=== PATIENT | male | born 1980 | race African-American/Black ===

== ENCOUNTER 2016-03-26 11:42 | Emergency (ER) | payer BC, OTHER ==
[~2016-03-26 11:42] MED LIST: FLECTOR1.3 TOP
[2016-03-26] MEDS ORDERED: GASTROGRAFIN SOLUTION 30ML (Q9963) As Ordered ONE (13:31)
[2016-03-26] MEDS ORDERED: PROMETHAZINE INJ 25 MG/ML VIAL (J2550) As Ordered ONE (13:33)
[2016-03-26 13:46] LABS: BASO % 0.7 % (0.0-1.0); EOS # 0.2 K/mm3 (0.0-0.50); EOS % 2.4 % (0.0-3.0); LARGE UNSTAINED CELL # 0.1 K/mm3 (0.0-0.4); LARGE UNSTAINED CELL % 1.6 % (0.0-4.0); LYMPH # 2.5 K/mm3 (1.5-4.5); MEAN CORPUSCULAR HEMOGLOBIN 28.3 pg (27.0-33.0); MEAN CORPUSCULAR HGB CONC 33.4 g/dl (32.0-36.5); MEAN CORPUSCULAR VOLUME 84.8 fl (80.0-96.0); MONO # 0.4 K/mm3 (0.0-0.8); MONO % 4.3 % (0.0-5.0); NEUTROPHILS # 5.1 K/mm3 (1.8-7.7); PLATELET COUNT, AUTOMATED 141 k/mm3 (150-450); RED CELL DISTRIBUTION WIDTH 14.1 % (11.5-14.5); WHITE BLOOD COUNT 8.2 K/mm3 (4.0-10.0)
[2016-03-26 14:15] LABS: ALBUMIN 4.5 GM/DL (3.2-5.2); ALBUMIN/GLOBULIN RATIO 1.13 (1.00-1.93); ALKALINE PHOSPHATASE 56 U/L (45-117); ALT/SGPT 31 U/L (12-78); AMYLASE 55 U/L (25-115); ANION GAP 10 MEQ/L (8-16); AST/SGOT 30 U/L (15-37); BILIRUBIN,DIRECT 0.1 MG/DL (0.0-0.2); BILIRUBIN,TOTAL 0.7 MG/DL (0.2-1.0); BLOOD UREA NITROGEN 12 MG/DL (7-18); CALCIUM LEVEL 9.1 MG/DL (8.5-10.1); CARBON DIOXIDE LEVEL 23 MEQ/L (21-32); CHLORIDE LEVEL 109 MEQ/L (98-107); CREATININE FOR GFR 1.04 MG/DL (0.70-1.30); GLOMERULAR FILTRATION RATE > 60.0 (>60); GLUCOSE, FASTING 82 MG/DL (70-105); MAGNESIUM LEVEL 2.1 MG/DL (1.8-2.4); POTASSIUM SERUM 3.9 MEQ/L (3.5-5.1); SODIUM LEVEL 142 MEQ/L (136-145); TOTAL PROTEIN 8.5 GM/DL (6.4-8.2)
--- NOTE | 2016-03-26 14:34 | REP ---
PA and lateral chest 03/26/2016 Indication: Chills Comparison: PA and lateral chest radiographs 06/08/2015, and 09/24/2013 Findings: Cardiomediastinal silhouette is normal. Lungs are clear bilaterally. Bones and soft tissues are within normal limits. Impression 1. No acute cardiopulmonary process or interval change Signed by Marycruz Jarvis MD 03/26/2016 02:26 P
[2016-03-26] MEDS ORDERED: ISOVUE-370 76% 100ML VIAL (Q9967) As Ordered ONE (14:44)
[2016-03-26 16:03] LABS: CONTROL LINE MONO INT CTR LINE PRESENT
[2016-03-26] MEDS ORDERED: ACETAMINOPHEN 325 MG TAB As Ordered ONE (16:54)
--- NOTE | 2016-03-26 17:10 | EDDOCDS ---
Physician Documentation [facility] Name: Gonzalo Stevens Age: 35 yrs Sex: Male : 1980 Arrival Date: 03/26/2016 Time: 11:42 Bed I4 / M4 Private MD: No Pcp Disposition: 03/26/16 17:01 Discharged to Home/Self Care. Impression: Nausea, Dehydration - WITH SLIGHTLY ELEVATED CPK, Anxiety disorder, unspecified. - Condition is Stable. - Discharge Instructions: Dehydration, Adult, Nausea, Adult, Generalized Anxiety Disorder. - Prescriptions for promethazine 25 mg Oral Tablet - take 1 tablet by ORAL route every 6 hours As needed; 20 tablet. Xanax 0.25 mg Oral Tablet - take 1 tablet by ORAL route every 8 hours As needed MDD: 3 tabs; 10 tablet. - Medication Reconciliation, Local Pharmacy Hours form. - Follow up: Emergency Department; When: 2 - 3 days; Reason: Wound/Symptom Recheck, Recheck today's complaints, Continuance of care. - Problem is new. - Symptoms have improved. Historical: - Allergies: no known allergies; - Home Meds: 1. Zofran (as hydrochloride) 4 mg Oral tab every 8 hours as needed 2. Penicillin VK Unknown Oral three times a day - PMHx: none; - PSHx: none; - Social history: Smoking status: Patient states was never smoker of tobacco. No barriers to communication noted, The patient speaks fluent Pashto, Speaks appropriately for age. - Family history: Not pertinent. - : The pt / caregiver states he / she is not on anticoagulants. Home medication list is obtained from the patient. - Exposure Risk Screening:: None identified. Vital Signs: 03/26 11:44 BP 121 / 75; Pulse 58; Resp 18; Temp 97.8(O); Pulse Ox 100% ; Weight 68.04 kg / 150 cmb lbs; Height 5 ft. 10 in. (177.80 cm); Pain 9/10; 16:20 BP 140 / 76; Pulse 46; Resp 20; Temp 100.2(T); Pulse Ox 98% on R/A; Pain 6/10; dsf 11:44 Body Mass Index 21.52 (68.04 kg, 177.80 cm) cmb MDM: 13:20 IV Saline Lock ordered. dt4 13:20 Strep Screen, Nursing ordered. dt4 13:20 NS 0.9% 1000 ml IV at bolus once ordered. dt4 13:20 NS 0.9% 1000 ml IV at bolus once ordered. dt4 13:20 Promethazine 25 mg IVP once; dilute and administer 30-60 minutes ordered. dt4 13:20 -Blood Culture (Adults Only), peripheral from different site, or from device/port/PICC dt4 etc. if present ordered. 13:20 Accucheck ordered. dt4 13:20 Undress patient appropriately for examination ordered. dt4 13:22 Magnesium Level Ordered. EDMS 13:22 Creatine Phosphokinase Ordered. EDMS 13:22 Urinalysis Ordered. EDMS 13:22 Monoscreen Ordered. EDMS 13:22 Lactic Acid (Aleman tube on ice) Ordered. EDMS 13:22 Amylase Ordered. EDMS 13:22 Basic Metabolic Profile Ordered. EDMS 13:22 CBC with Diff Ordered. EDMS 13:22 Lipase Ordered. EDMS 13:22 Liver Profile Ordered. EDMS 13:22 Urine Culture Ordered. EDMS 13:22 -Blood Culture Ordered. EDMS 13:22 Chest, 2 View (pa\E\lat) Ordered. EDMS 13:22 -Blood Culture (Adults Only), peripheral from different site, or from device/port/PICC jrd etc. if present complete. 13:22 CT ABD & PELVIS: IV and Oral Contrast Ordered. EDMS 13:22 NOTHING BY MOUTH+DIET ordered. EDMS 13:26 BLOOD CULTURES Ordered. EDMS 13:42 Diatrizoate Meglumine & Sodium Liquid 10 ml PO once; mix in 290cc of water ordered. dsf 13:42 Diatrizoate Meglumine & Sodium Liquid 10 ml PO once; mix in 290cc of water ordered. dsf 13:45 GATS (NEGATIVE STREP SCREEN) Ordered. EDMS 13:46 Fingerstick Blood Sugar Ordered. EDMS 13:47 [facility] Payment Agreement was scanned into [employer] and attached to record. pm4 13:48 Financial registration complete. pm4 15:53 Creatine Phosphokinase Reviewed. dt4 15:53 Urinalysis Reviewed. dt4 15:53 Basic Metabolic Profile Reviewed. dt4 15:53 CBC with Diff Reviewed. dt4 15:53 Liver Profile Reviewed. dt4 15:53 Magnesium Level Reviewed. dt4 15:53 Lactic Acid (Aleman tube on ice) Reviewed. dt4 15:53 Amylase Reviewed. dt4 15:53 Lipase Reviewed. dt4 15:53 Fingerstick Blood Sugar Reviewed. dt4 15:53 Chest, 2 View (pa\E\lat) Reviewed. dt4 16:25 Consult PFS/PSA/Tibco Developer ordered. dt4 16:43 Consult PFS/PSA/Tibco Developer complete. ml4 16:48 Acetaminophen Tablet 975 mg PO once ordered. dt4 Point of Care Testing: Blood Glucose: 13:39 Blood Glucose: 88 mg/dL; kc3 Ranges: Administered Medications: 13:40 Drug: Diatrizoate Meglumine & Sodium 10 ml [diatrizoate meglumine and diat.sodium 66 dsf %-10 % oral solution (10 mL)] Route: PO; 13:41 Drug: NS 0.9% 1000 ml [sodium chloride 0.9 % injection solution] Route: IV; Rate: dsf bolus; Site: left antecubital; 17:10 Follow up: IV Status: Completed infusion; IV Intake: 1000ml dsf 13:41 Drug: Promethazine 25 mg [promethazine 25 mg/mL injection solution (1 mL)] Route: IVP; dsf Site: left antecubital; 14:27 Drug: Diatrizoate Meglumine & Sodium 10 ml [diatrizoate meglumine and diat.sodium 66 kc3 %-10 % oral solution (10 mL)] Route: PO; 15:32 Drug: NS 0.9% 1000 ml [sodium chloride 0.9 % injection solution] Route: IV; Rate: dsf bolus; Site: left antecubital; 16:56 Drug: Acetaminophen 975 mg [acetaminophen 325 mg tablet (3 tabs)] Route: PO; kc3 Signatures: Dispatcher MedHost EDUT Javon Fitzgerald RN RN mlb1 Zahra Marr, PSA PSA ml4 Ami MonahanRN RN dsf Aneta Lee PA-C PAArabella dt4 Abdulaziz Villaseñor, ROCK LATHER ROCK LATHER jrd Denise Moore RN RN kc3 Pelon Myers, Reg Reg pm4 The chart was reviewed and I authenticate all verbal orders and agree with the evaluation and treatment provided.Attachments: 13:47 [facility] Payment Agreement pm4 MTDD
--- NOTE | 2016-03-26 17:11 | EDDOCDS ---
Nurse's Notes [facility] Name: Gonzalo Stevens Age: 35 yrs Sex: Male : 1980 Arrival Date: 03/26/2016 Time: 11:42 Bed I4 / M4 Private MD: No Pcp Diagnosis: Nausea;Dehydration-WITH SLIGHTLY ELEVATED CPK;Anxiety disorder, unspecified Presentation: 03/26 11:46 Presenting complaint: Patient states: Not feeling well since last Thursday, body aches mlb1 fatigue, and nausea. Adult Sepsis Screening: The patient does not have new or worsening altered mentation. Patient's respiratory rate is less than 22. Systolic blood pressure is greater than 100. Patient has a qSOFA score of 0- Negative Sepsis Screen. Suicide/Homicide risk assessment- the patient denies having any suicidal and/or homicidal ideations and does not present with any other emotional, behavioral or mental health complaints. Status: Patient is not a public services librarian or dependent. Transition of care: patient was not received from another setting of care. 11:46 Acuity: IRA Level 4 mlb1 11:46 Method Of Arrival: Walkin/Carried/Asstd mlb1 Triage Assessment: 11:49 General: Appears in no apparent distress, Behavior is cooperative. General: Reports mlb1 feeling ill for > 3 days. Pain: Location: "all over" Pain currently is 10 out of 10 on a pain scale. HIV screening NA for this visit Offered previously. GI: Reports nausea. Historical: - Allergies: no known allergies; - Home Meds: 1. Zofran (as hydrochloride) 4 mg Oral tab every 8 hours as needed 2. Penicillin VK Unknown Oral three times a day - PMHx: none; - PSHx: none; - Social history: Smoking status: Patient states was never smoker of tobacco. No barriers to communication noted, The patient speaks fluent [place], Speaks appropriately for age. - Family history: Not pertinent. - : The pt / caregiver states he / she is not on anticoagulants. Home medication list is obtained from the patient. - Exposure Risk Screening:: None identified. Screenin:03 Screening information is obtained from the patient. Fall risk: No risks identified. kc3 Assistance ADL's: requires no assistance with activities of daily living. Abuse/DV Screen: The patient / caregiver reports he/she is: not in a situation that causes fear, pain or injury. Nutritional screening: No deficits noted. home support is adequate. 16:20 Advance Directives: Currently, there is no health care proxy. dsf Assessment: 13:17 Adult Sepsis Screening: Patient's respiratory rate is less than 22. Systolic blood dsf pressure is greater than 100. Patient has a qSOFA score of 0- Negative Sepsis Screen. General: Appears ill, Behavior is appropriate for age. Pain: Location: all over body Pain currently is 10 out of 10 on a pain scale. Quality of pain is described as aching. Neurological: Level of Consciousness is awake, alert, Oriented to person, place, time. Cardiovascular: Capillary refill < 3 seconds. Respiratory: Airway is patent Respiratory effort is even, unlabored, Respiratory pattern is regular, symmetrical. GI: Reports nausea. Derm: Skin is pink, warm & dry. 14:05 General: pt states nausea is better after Phenergan infusion done . dsf 15:17 Adult Sepsis Screening: The patient does not have new or worsening altered mentation. kc3 Patient's respiratory rate is less than 22. Systolic blood pressure is greater than 100. Patient has a qSOFA score of 0- Negative Sepsis Screen. 15:19 General: Appears ill, Behavior is appropriate for age, cooperative. Neurological: Level dsf of Consciousness is awake, alert. Cardiovascular: Capillary refill < 3 seconds. Respiratory: Airway is patent Respiratory effort is even, unlabored, Respiratory pattern is regular, symmetrical. GI: Reports nausea. Derm: Skin is pink, warm & dry. 16:20 General: Appears in no apparent distress, Behavior is appropriate for age, cooperative. dsf Pain: Location: all over body Pain currently is 6 out of 10 on a pain scale. Neurological: Level of Consciousness is awake, alert, Oriented to person, place, time. Cardiovascular: Capillary refill < 3 seconds. Respiratory: Airway is patent Respiratory effort is even, unlabored, Respiratory pattern is regular, symmetrical. Derm: Skin is pink, warm & dry. 17:08 General: Appears in no apparent distress, Behavior is appropriate for age, cooperative. dsf Neurological: Level of Consciousness is awake, alert. Cardiovascular: Capillary refill < 3 seconds. Respiratory: Airway is patent Respiratory effort is even, unlabored, Respiratory pattern is regular, symmetrical. Derm: Skin is pink, warm & dry. Social Work Consult: 17:00 Social Work Note: Met pt at bedside regarding possible depression symptoms(body aches, ml4 fatigue, and nausea). He admits suffering from symptoms for the past week, unable to drink or eat over the past few days. He reports struggling with the of his Mother who 3 years ago from Lupus. The upcoming anniversary of her is in May and states, "I'm just having a hard time." He admits to vague SI due to his discomfort and states, "I'm not suicidal, but I just done feel good." He continues to deny SI and HI, able to CFS. Referrals for outpt services was given at bedside. No concerns noted. Vital Signs: 11:44 BP 121 / 75; Pulse 58; Resp 18; Temp 97.8(O); Pulse Ox 100% ; Weight 68.04 kg; Height 5 cmb ft. 10 in. (177.80 cm); Pain 9/10; 16:20 BP 140 / 76; Pulse 46; Resp 20; Temp 100.2(T); Pulse Ox 98% on R/A; Pain 6/10; dsf 11:44 Body Mass Index 21.52 (68.04 kg, 177.80 cm) cmb Vitals: 11:44 Log In Time: March 26, 2016 at 11:41. cmb 13:39 Strep Screen is obtained and tested: Negative, a GATSNEG culture is ordered in [facility] kc3 and sent. ED Course: 11:43 Patient visited by Shena Benitez. cmb 11:43 Patient moved to Waiting cmb 11:44 No Pcp is Private Physician. cmb 11:45 Patient moved to Pre RCE cmb 11:46 Patient visited by Javon Fitzgerald, RN. mlb1 11:47 Triage Initiated mlb1 11:50 Patient visited by Javon Fitzgerald, INGRID. mlb1 12:14 Patient moved to Triage 3 ttb 12:51 Aneta Lee PA-C is PHCP. dt4 12:51 Giovana Lewis MD is Attending Physician. dt4 12:51 Patient visited by Aneta Lee PA-C. dt4 13:17 Patient moved to I4 / M4 ct3 13:27 BLOOD CULTURES Sent. dsf 13:27 Amylase Sent. dsf 13:27 Basic Metabolic Profile Sent. dsf 13:27 CBC with Diff Sent. dsf 13:27 Liver Profile Sent. dsf 13:27 Lipase Sent. dsf 13:27 Inserted saline lock: 18 gauge in right antecubital area The patient tolerated the dsf procedure well. 13:28 Monoscreen Sent. dsf 13:28 Creatine Phosphokinase Sent. dsf 13:28 Magnesium Level Sent. dsf 13:28 Lactic Acid (Aleman tube on ice) Sent. dsf 13:45 Patient name changed from Gonzalo\\S\\\\S\\Hilda\\S\\ to Gonzalo\\S\\ \\S\\Hilda. EDMS 13:47 [facility] Payment Agreement was scanned into [employer] and attached to record. pm4 13:48 GATS (NEGATIVE STREP SCREEN) Sent. kc3 13:56 Patient visited by Denise Moore RN. kc3 14:06 Patient visited by Ami Monahan RN. dsf 14:[address] dsf 14:56 Patient moved to I4 / M4 dsf 14:56 Chest, 2 View (pa\\E\\lat) Returned. EDMS 15:02 Urine Culture Sent. kc3 15:03 Patient visited by Denise Moore RN. kc3 15:03 The patient / caregiver is instructed regarding the plan of care and ED course. kc3 15:19 Patient visited by Ami Monahan RN. dsf 16:15 Patient visited by Denise Moore,INGRID. kc3 16:21 Patient visited by Ami Monahan RN. dsf 16:43 Patient visited by Zahra Marr PSA. ml4 17:09 Discontinued lock intact, bleeding controlled, pressure dressing applied, No dsf redness/swelling at site. No procedures done that require assistance. Administered Medications: 13:40 Drug: Diatrizoate Meglumine & Sodium 10 ml [diatrizoate meglumine and diat.sodium 66 dsf %-10 % oral solution (10 mL)] Route: PO; 13:41 Drug: NS 0.9% 1000 ml [sodium chloride 0.9 % injection solution] Route: IV; Rate: dsf bolus; Site: left antecubital; 17:10 Follow up: IV Status: Completed infusion; IV Intake: 1000ml dsf 13:41 Drug: Promethazine 25 mg [promethazine 25 mg/mL injection solution (1 mL)] Route: IVP; dsf Site: left antecubital; 14:27 Drug: Diatrizoate Meglumine & Sodium 10 ml [diatrizoate meglumine and diat.sodium 66 kc3 %-10 % oral solution (10 mL)] Route: PO; 15:32 Drug: NS 0.9% 1000 ml [sodium chloride 0.9 % injection solution] Route: IV; Rate: dsf bolus; Site: left antecubital; 17:10 Follow up: IV Status: Infusion discontinued; IV Intake: 700ml dsf 16:56 Drug: Acetaminophen 975 mg [acetaminophen 325 mg tablet (3 tabs)] Route: PO; kc3 Point of Care Testing: Blood Glucose: 13:39 Blood Glucose: 88 mg/dL; kc3 Ranges: Intake: 17:10 IV: 1000.00ml; Total: 1000.00ml. dsf 17:10 IV: 700.00ml; Total: 1700.00ml. dsf Order Results: Lab Order: Magnesium Level; [facility]' 03/26/16 13:25 Test: MAGNESIUM LEVEL; Value: 2.1; Range: 1.8-2.4; Units: MG/DL; Status: F Lab Order: Creatine Phosphokinase; [facility] 03/26/16 13:25 Test: CPK CREATINE PHOSPHOKINASE; Value: 533; Range: 39-308; Abnormal: Above high normal; Units: U/L; Status: F Lab Order: Urinalysis; [facility] 03/26/16 14:58 Test: APPEARANCE, URINE; Value: CLEAR; Range: CLEAR; Status: F Test: COLOR, URINE; Value: YELLOW; Range: YELLOW; Status: F Test: PH,URINE; Value: 7.0; Range: 5.0-9.0; Units: UNITS; Status: F Test: SPECIFIC GRAVITY URINE AUTO; Value: 1.012; Range: 1.002-1.035; Status: F Test: PROTEIN, URINE AUTO; Value: 1+; Range: NEGATIVE; Abnormal: Above high normal; Units: mg/dL; Status: F Test: GLUCOSE, URINE (UA) AUTO; Value: NEGATIVE; Range: NEGATIVE; Units: mg/dL; Status: F Test: KETONE, URINE AUTO; Value: 1+; Range: NEGATIVE; Abnormal: Above high normal; Units: mg/dL; Status: F Test: UROBILINOGEN, URINE AUTO; Value: 0.2; Range: 0.0-2.0; Units: mg/dL; Status: F Test: BILIRUBIN, URINE AUTO; Value: NEGATIVE; Range: NEGATIVE; Status: F Test: NITRITE, URINE AUTO; Value: NEGATIVE; Range: NEGATIVE; Status: F Test: LEUKOCYTE ESTERASE, URINE AUTO; Value: NEGATIVE; Range: NEGATIVE; Status: F Test: BLOOD, URINE BLOOD; Value: NEGATIVE; Range: NEGATIVE; Status: F Test: WBC, URINE AUTO; Value: 1; Range: 0-3; Units: /HPF; Status: F Test: RBC, URINE AUTO; Value: 1; Range: 0-3; Units: /HPF; Status: F Test: BACTERIA, URINE AUTO; Value: NEGATIVE; Range: NEGATIVE; Status: F Test: SQUAMOUS EPITHELIAL CELL UR AU; Value: 0; Range: 0-6; Units: /HPF; Status: F Test: MUCUS, URINE; Value: SMALL; Range: NEGATIVE; Status: F Test: HYALINE CAST, URINE AUTO; Value: 0; Range: 0-1; Units: /LPF; Status: F Lab Order: Monoscreen; [facility] 03/26/16 13:25 Test: MONO SCRN; Value: NEGATIVE; Range: NEGATIVE; Status: F Lab Order: Lactic Acid (Aleman tube on ice); [facility] 03/26/16 13:25 Test: LACTIC ACID LEVEL, LACTATE; Value: 1.6; Range: 0.4-2.0; Units: MMOL/L; Status: F Lab Order: Amylase; [facility] 03/26/16 13:25 Test: AMYLASE; Value: 55; Range: 25-115; Units: U/L; Status: F Lab Order: Basic Metabolic Profile; [facility] 03/26/16 13:25 Test: GLUCOSE, FASTING; Value: 82; Range: 70-105; Units: MG/DL; Status: F Test: BLOOD UREA NITROGEN; Value: 12; Range: 7-18; Units: MG/DL; Status: F Test: CREATININE FOR GFR; Value: 1.04; Range: 0.70-1.30; Units: MG/DL; Status: F Test: GLOMERULAR FILTRATION RATE; Value: > 60.0; Range: >60; Status: F Test: SODIUM LEVEL; Value: 142; Range: 136-145; Units: MEQ/L; Status: F Test: POTASSIUM SERUM; Value: 3.9; Range: 3.5-5.1; Units: MEQ/L; Status: F Test: CHLORIDE LEVEL; Value: 109; Range: 98-107; Abnormal: Above high normal; Units: MEQ/L; Status: F Test: CARBON DIOXIDE LEVEL; Value: 23; Range: 21-32; Units: MEQ/L; Status: F Test: ANION GAP; Value: 10; Range: 8-16; Units: MEQ/L; Status: F Test: CALCIUM LEVEL; Value: 9.1; Range: 8.5-10.1; Units: MG/DL; Status: F Test Note: ; Units are mL/min/1.73 m2 Chronic Kidney Disease Staging per NKF: Stage I & II GFR >=60 Normal to Mildly Decreased Stage III GFR 30-59 Moderately Decreased Stage IV GFR 15-29 Severely Decreased Stage V GFR <15 Very Little GFR Left ESRD GFR <15 on PUBLIC INTERVIEWER Lab Order: CBC with Diff; SPEC'M 03/26/16 13:25 Test: WHITE BLOOD COUNT; Value: 8.2; Range: 4.0-10.0; Units: K/mm3; Status: F Test: RED BLOOD COUNT; Value: 4.39; Range: 4.30-6.10; Units: M/mm3; Status: F Test: HEMOGLOBIN; Value: 12.4; Range: 14.0-18.0; Abnormal: Below low normal; Units: g/dl; Status: F Test: HEMATOCRIT; Value: 37.2; Range: 42.0-52.0; Abnormal: Below low normal; Units: %; Status: F Test: MEAN CORPUSCULAR VOLUME; Value: 84.8; Range: 80.0-96.0; Units: fl; Status: F Test: MEAN CORPUSCULAR HEMOGLOBIN; Value: 28.3; Range: 27.0-33.0; Units: pg; Status: F Test: MEAN CORPUSCULAR HGB CONC; Value: 33.4; Range: 32.0-36.5; Units: g/dl; Status: F Test: RED CELL DISTRIBUTION WIDTH; Value: 14.1; Range: 11.5-14.5; Units: %; Status: F Test: PLATELET COUNT, AUTOMATED; Value: 141; Range: 150-450; Abnormal: Below low normal; Units: k/mm3; Status: F Test: NEUTROPHILS %; Value: 62.0; Range: 36.0-66.0; Units: %; Status: F Test: LYMPH %; Value: 29.0; Range: 24.0-44.0; Units: %; Status: F Test: MONO %; Value: 4.3; Range: 0.0-5.0; Units: %; Status: F Test: EOS %; Value: 2.4; Range: 0.0-3.0; Units: %; Status: F Test: BASO %; Value: 0.7; Range: 0.0-1.0; Units: %; Status: F Test: LARGE UNSTAINED CELL %; Value: 1.6; Range: 0.0-4.0; Units: %; Status: F Test: NEUTROPHILS #; Value: 5.1; Range: 1.8-7.7; Units: K/mm3; Status: F Test: LYMPH #; Value: 2.5; Range: 1.5-4.5; Units: K/mm3; Status: F Test: MONO #; Value: 0.4; Range: 0.0-0.8; Units: K/mm3; Status: F Test: EOS #; Value: 0.2; Range: 0.0-0.50; Units: K/mm3; Status: F Test: BASO #; Value: 0.0; Range: 0.0-0.2; Units: K/mm3; Status: F Test: LARGE UNSTAINED CELL #; Value: 0.1; Range: 0.0-0.4; Units: K/mm3; Status: F Lab Order: Lipase; SPEC'M 03/26/16 13:25 Test: LIPASE; Value: 137; Range: 73-393; Units: U/L; Status: F Lab Order: Liver Profile; SPEC'M 03/26/16 13:25 Test: AST/SGOT; Value: 30; Range: 15-37; Units: U/L; Status: F Test: ALT/SGPT; Value: 31; Range: 12-78; Units: U/L; Status: F Test: ALKALINE PHOSPHATASE; Value: 56; Range: 45-117; Units: U/L; Status: F Test: BILIRUBIN,TOTAL; Value: 0.7; Range: 0.2-1.0; Units: MG/DL; Status: F Test: BILIRUBIN,DIRECT; Value: 0.1; Range: 0.0-0.2; Units: MG/DL; Status: F Test: TOTAL PROTEIN; Value: 8.5; Range: 6.4-8.2; Abnormal: Above high normal; Units: GM/DL; Status: F Test: ALBUMIN; Value: 4.5; Range: 3.2-5.2; Units: GM/DL; Status: F Test: ALBUMIN/GLOBULIN RATIO; Value: 1.13; Range: 1.00-1.93; Status: F Lab Order: Fingerstick Blood Sugar; SPEC'M 03/26/16 13:37 Test: BEDSIDE GLUCOSE; Value: 88; Range: 70-105; Units: MG/DL; Status: F Radiology Order: Chest, 2 View (pa\\E\\lat) Test: Chest, 2 View (pa\\E\\lat) REASON FOR EXAMINATION: CHILLS; PA and lateral chest 03/26/2016; ; Indication: Chills; ; Comparison: PA and lateral chest radiographs 06/08/2015, and 09/24/2013; ; Findings: Cardiomediastinal silhouette is normal. Lungs are clear bilaterally.; Bones and soft tissues are within normal limits.; ; Impression; 1. No acute cardiopulmonary process or interval change; ; ; ; ; Signed by; Marycruz Jarvis MD 03/26/2016 02:26 P; Outcome: 17:01 Discharge ordered by Provider. dt4 17:09 Discharge Assessment: Patient awake, alert and oriented x 3. No cognitive and/or dsf functional deficits noted. Patient verbalized understanding of disposition instructions. patient administered narcotics - no. The following High Risk Discharge criteria are identified: None. Discharged to home ambulatory, with significant other. Condition: stable. Discharge instructions given to patient, Instructed on discharge instructions, follow up and referral plans. medication usage, no driving heavy equipment, Demonstrated understanding of instructions, medications, Pt was receptive of discharge instructions/ teaching. Prescriptions given X 2. CT Study completed. Property sent home with patient. 17:09 Patient left the ED. dsf Signatures: Dispatcher MedHost EDMS Javon Fitzgerald, RN RN mlb1 Zahra Marr, PSA PSA ml4 Latoya Walker, [employer] REPRINTING UNIT OPERATOR [employer]OTG[employer] SHELL REPRINTING UNIT OPERATOR ct3 Ami MonahanRN RN dsf Shena Benitez Teresa RN RN ttb Aneta Lee, PA-C PA-C dt4 Denise Moore RN RN kc3 Pelon Myers, Reg Reg pm4 MTDD
--- NOTE | 2016-03-26 22:00 | REP ---
CT abdomen/ pelvis with IV and oral contrast 03/26/2016 Indication : Nausea vomiting abdominal pain, generalized; nonfocal exam Comparison: CT pelvis 06/08/2015 performed at [facility]. Technique: After drinking 2 cups of oral contrast, each containing 10 ml gastrographin in 290 ml water, 100 ml Isovue 370 mg/ml was subsequently injected intravenously. 3 mm spiral sections were performed through the abdomen and pelvis. Findings: lung bases are clear bilaterally. Liver, spleen, pancreas and adrenal glands are normal . Kidneys are without hydronephrosis or obstructing ureteral calculi bilaterally. Stomach small bowel are within normal limits. The terminal ileum and appendix are normal. Abdominal aorta is of normal course and caliber. Bladder, prostate are normal. There are a few scattered sigmoid diverticula. There is moderate stool within right and transverse colon. There is no free air or ascites There is old bilateral L5 spondylolysis, without spondylolisthesis Impression: No acute intra-abdominal or pelvic pathology Old bilateral L5 spondylolysis without spondylolisthesis. Moderate bladder distension Signed by Marycruz Jarvis MD 03/26/2016 09:51 P
--- NOTE | 2016-03-28 18:10 | EDDOCDS ---
Physician Documentation [facility] Name: Gonzalo Stevens Age: 35 yrs Sex: Male : 1980 Arrival Date: 03/26/2016 Time: 11:42 Bed I4 / M4 Private MD: No Pcp Disposition: 03/26/16 17:01 Discharged to Home/Self Care. Impression: Nausea, Dehydration - WITH SLIGHTLY ELEVATED CPK, Anxiety disorder, unspecified. - Condition is Stable. - Discharge Instructions: Dehydration, Adult, Nausea, Adult, Generalized Anxiety Disorder. - Prescriptions for promethazine 25 mg Oral Tablet - take 1 tablet by ORAL route every 6 hours As needed; 20 tablet. Xanax 0.25 mg Oral Tablet - take 1 tablet by ORAL route every 8 hours As needed MDD: 3 tabs; 10 tablet. - Medication Reconciliation, Local Pharmacy Hours form. - Follow up: Emergency Department; When: 2 - 3 days; Reason: Wound/Symptom Recheck, Recheck today's complaints, Continuance of care. - Problem is new. - Symptoms have improved. Historical: - Allergies: no known allergies; - Home Meds: 1. Zofran (as hydrochloride) 4 mg Oral tab every 8 hours as needed 2. Penicillin VK Unknown Oral three times a day - PMHx: none; - PSHx: none; - Social history: Smoking status: Patient states was never smoker of tobacco. No barriers to communication noted, The patient speaks fluent Albanian, Speaks appropriately for age. - Family history: Not pertinent. - : The pt / caregiver states he / she is not on anticoagulants. Home medication list is obtained from the patient. - Exposure Risk Screening:: None identified. Vital Signs: 03/26 11:44 BP 121 / 75; Pulse 58; Resp 18; Temp 97.8(O); Pulse Ox 100% ; Weight 68.04 kg / 150 cmb lbs; Height 5 ft. 10 in. (177.80 cm); Pain 9/10; 16:20 BP 140 / 76; Pulse 46; Resp 20; Temp 100.2(T); Pulse Ox 98% on R/A; Pain 6/10; dsf 11:44 Body Mass Index 21.52 (68.04 kg, 177.80 cm) cmb MDM: 13:20 IV Saline Lock ordered. dt4 13:20 Strep Screen, Nursing ordered. dt4 13:20 NS 0.9% 1000 ml IV at bolus once ordered. dt4 13:20 NS 0.9% 1000 ml IV at bolus once ordered. dt4 13:20 Promethazine 25 mg IVP once; dilute and administer 30-60 minutes ordered. dt4 13:20 -Blood Culture (Adults Only), peripheral from different site, or from device/port/PICC dt4 etc. if present ordered. 13:20 Accucheck ordered. dt4 13:20 Undress patient appropriately for examination ordered. dt4 13:22 Magnesium Level Ordered. EDMS 13:22 Creatine Phosphokinase Ordered. EDMS 13:22 Urinalysis Ordered. EDMS 13:22 Monoscreen Ordered. EDMS 13:22 Lactic Acid (Aleman tube on ice) Ordered. EDMS 13:22 Amylase Ordered. EDMS 13:22 Basic Metabolic Profile Ordered. EDMS 13:22 CBC with Diff Ordered. EDMS 13:22 Lipase Ordered. EDMS 13:22 Liver Profile Ordered. EDMS 13:22 Urine Culture Ordered. EDMS 13:22 -Blood Culture Ordered. EDMS 13:22 Chest, 2 View (pa\E\lat) Ordered. EDMS 13:22 -Blood Culture (Adults Only), peripheral from different site, or from device/port/PICC jrd etc. if present complete. 13:22 CT ABD & PELVIS: IV and Oral Contrast Ordered. EDMS 13:22 NOTHING BY MOUTH+DIET ordered. EDMS 13:26 BLOOD CULTURES Ordered. EDMS 13:42 Diatrizoate Meglumine & Sodium Liquid 10 ml PO once; mix in 290cc of water ordered. dsf 13:42 Diatrizoate Meglumine & Sodium Liquid 10 ml PO once; mix in 290cc of water ordered. dsf 13:45 GATS (NEGATIVE STREP SCREEN) Ordered. EDMS 13:46 Fingerstick Blood Sugar Ordered. EDMS 13:47 [facility] Payment Agreement was scanned into [employer] and attached to record. pm4 13:48 Financial registration complete. pm4 15:53 Creatine Phosphokinase Reviewed. dt4 15:53 Urinalysis Reviewed. dt4 15:53 Basic Metabolic Profile Reviewed. dt4 15:53 CBC with Diff Reviewed. dt4 15:53 Liver Profile Reviewed. dt4 15:53 Magnesium Level Reviewed. dt4 15:53 Lactic Acid (Aleman tube on ice) Reviewed. dt4 15:53 Amylase Reviewed. dt4 15:53 Lipase Reviewed. dt4 15:53 Fingerstick Blood Sugar Reviewed. dt4 15:53 Chest, 2 View (pa\E\lat) Reviewed. dt4 16:25 Consult PFS/PSA/Wholesale Parts Salesperson ordered. dt4 16:43 Consult PFS/PSA/Wholesale Parts Salesperson complete. ml4 16:48 Acetaminophen Tablet 975 mg PO once ordered. dt4 17:10 PSA Outpatient Referrals was scanned into [employer] and attached to record. ml4 03/28 08:19 T-Sheet-- Draft Copy was scanned into [employer] and attached to record. Point of Care Testing: Blood Glucose: 03/26 13:39 Blood Glucose: 88 mg/dL; kc3 Ranges: Administered Medications: 13:40 Drug: Diatrizoate Meglumine & Sodium 10 ml [diatrizoate meglumine and diat.sodium 66 dsf %-10 % oral solution (10 mL)] Route: PO; 13:41 Drug: NS 0.9% 1000 ml [sodium chloride 0.9 % injection solution] Route: IV; Rate: dsf bolus; Site: left antecubital; 17:10 Follow up: IV Status: Completed infusion; IV Intake: 1000ml dsf 13:41 Drug: Promethazine 25 mg [promethazine 25 mg/mL injection solution (1 mL)] Route: IVP; dsf Site: left antecubital; 14:27 Drug: Diatrizoate Meglumine & Sodium 10 ml [diatrizoate meglumine and diat.sodium 66 kc3 %-10 % oral solution (10 mL)] Route: PO; 15:32 Drug: NS 0.9% 1000 ml [sodium chloride 0.9 % injection solution] Route: IV; Rate: dsf bolus; Site: left antecubital; 17:10 Follow up: IV Status: Infusion discontinued; IV Intake: 700ml dsf 16:56 Drug: Acetaminophen 975 mg [acetaminophen 325 mg tablet (3 tabs)] Route: PO; kc3 Signatures: Dispatcher [employer] EDMS Ethel Singletary, Reg Reg gb Javon Fitzgerald RN RN mlb1 Zahra Marr, PSA PSA ml4 Monahan,AmiINGRID farrar RN, Diane, PA-C PA-C dt4 Abdulaziz Villaseñor, INFANTRY ASSAULTMAN INFANTRY ASSAULTMAN jrd Denise Moore,INGRID RN kc3 Pelon Myers, Reg Reg pm4 The chart was reviewed and I authenticate all verbal orders and agree with the evaluation and treatment provided.Attachments: 13:47 [facility] Payment Agreement pm4 03/28 08:19 T-Sheet-- Draft Copy gb Chart Complete MTDD
--- NOTE | 2016-03-28 18:10 | EDDOCDS ---
Physician Documentation [facility] Name: Gonzalo Stevens Age: 35 yrs Sex: Male : 1980 Arrival Date: 03/26/2016 Time: 11:42 Bed I4 / M4 Private MD: No Pcp Disposition: 03/26/16 17:01 Discharged to Home/Self Care. Impression: Nausea, Dehydration - WITH SLIGHTLY ELEVATED CPK, Anxiety disorder, unspecified. - Condition is Stable. - Discharge Instructions: Dehydration, Adult, Nausea, Adult, Generalized Anxiety Disorder. - Prescriptions for promethazine 25 mg Oral Tablet - take 1 tablet by ORAL route every 6 hours As needed; 20 tablet. Xanax 0.25 mg Oral Tablet - take 1 tablet by ORAL route every 8 hours As needed MDD: 3 tabs; 10 tablet. - Medication Reconciliation, Local Pharmacy Hours form. - Follow up: Emergency Department; When: 2 - 3 days; Reason: Wound/Symptom Recheck, Recheck today's complaints, Continuance of care. - Problem is new. - Symptoms have improved. Historical: - Allergies: no known allergies; - Home Meds: 1. Zofran (as hydrochloride) 4 mg Oral tab every 8 hours as needed 2. Penicillin VK Unknown Oral three times a day - PMHx: none; - PSHx: none; - Social history: Smoking status: Patient states was never smoker of tobacco. No barriers to communication noted, The patient speaks fluent Portuguese, Speaks appropriately for age. - Family history: Not pertinent. - : The pt / caregiver states he / she is not on anticoagulants. Home medication list is obtained from the patient. - Exposure Risk Screening:: None identified. Vital Signs: 03/26 11:44 BP 121 / 75; Pulse 58; Resp 18; Temp 97.8(O); Pulse Ox 100% ; Weight 68.04 kg / 150 cmb lbs; Height 5 ft. 10 in. (177.80 cm); Pain 9/10; 16:20 BP 140 / 76; Pulse 46; Resp 20; Temp 100.2(T); Pulse Ox 98% on R/A; Pain 6/10; dsf 11:44 Body Mass Index 21.52 (68.04 kg, 177.80 cm) cmb MDM: 13:20 IV Saline Lock ordered. dt4 13:20 Strep Screen, Nursing ordered. dt4 13:20 NS 0.9% 1000 ml IV at bolus once ordered. dt4 13:20 NS 0.9% 1000 ml IV at bolus once ordered. dt4 13:20 Promethazine 25 mg IVP once; dilute and administer 30-60 minutes ordered. dt4 13:20 -Blood Culture (Adults Only), peripheral from different site, or from device/port/PICC dt4 etc. if present ordered. 13:20 Accucheck ordered. dt4 13:20 Undress patient appropriately for examination ordered. dt4 13:22 Magnesium Level Ordered. EDMS 13:22 Creatine Phosphokinase Ordered. EDMS 13:22 Urinalysis Ordered. EDMS 13:22 Monoscreen Ordered. EDMS 13:22 Lactic Acid (Aleman tube on ice) Ordered. EDMS 13:22 Amylase Ordered. EDMS 13:22 Basic Metabolic Profile Ordered. EDMS 13:22 CBC with Diff Ordered. EDMS 13:22 Lipase Ordered. EDMS 13:22 Liver Profile Ordered. EDMS 13:22 Urine Culture Ordered. EDMS 13:22 -Blood Culture Ordered. EDMS 13:22 Chest, 2 View (pa\E\lat) Ordered. EDMS 13:22 -Blood Culture (Adults Only), peripheral from different site, or from device/port/PICC jrd etc. if present complete. 13:22 CT ABD & PELVIS: IV and Oral Contrast Ordered. EDMS 13:22 NOTHING BY MOUTH+DIET ordered. EDMS 13:26 BLOOD CULTURES Ordered. EDMS 13:42 Diatrizoate Meglumine & Sodium Liquid 10 ml PO once; mix in 290cc of water ordered. dsf 13:42 Diatrizoate Meglumine & Sodium Liquid 10 ml PO once; mix in 290cc of water ordered. dsf 13:45 GATS (NEGATIVE STREP SCREEN) Ordered. EDMS 13:46 Fingerstick Blood Sugar Ordered. EDMS 13:47 [facility] Payment Agreement was scanned into [employer] and attached to record. pm4 13:48 Financial registration complete. pm4 15:53 Creatine Phosphokinase Reviewed. dt4 15:53 Urinalysis Reviewed. dt4 15:53 Basic Metabolic Profile Reviewed. dt4 15:53 CBC with Diff Reviewed. dt4 15:53 Liver Profile Reviewed. dt4 15:53 Magnesium Level Reviewed. dt4 15:53 Lactic Acid (Aleman tube on ice) Reviewed. dt4 15:53 Amylase Reviewed. dt4 15:53 Lipase Reviewed. dt4 15:53 Fingerstick Blood Sugar Reviewed. dt4 15:53 Chest, 2 View (pa\E\lat) Reviewed. dt4 16:25 Consult PFS/PSA/Flag Maker ordered. dt4 16:43 Consult PFS/PSA/Flag Maker complete. ml4 16:48 Acetaminophen Tablet 975 mg PO once ordered. dt4 17:10 PSA Outpatient Referrals was scanned into [employer] and attached to record. ml4 03/28 08:19 T-Sheet-- Draft Copy was scanned into [employer] and attached to record. Point of Care Testing: Blood Glucose: 03/26 13:39 Blood Glucose: 88 mg/dL; kc3 Ranges: Administered Medications: 13:40 Drug: Diatrizoate Meglumine & Sodium 10 ml [diatrizoate meglumine and diat.sodium 66 dsf %-10 % oral solution (10 mL)] Route: PO; 13:41 Drug: NS 0.9% 1000 ml [sodium chloride 0.9 % injection solution] Route: IV; Rate: dsf bolus; Site: left antecubital; 17:10 Follow up: IV Status: Completed infusion; IV Intake: 1000ml dsf 13:41 Drug: Promethazine 25 mg [promethazine 25 mg/mL injection solution (1 mL)] Route: IVP; dsf Site: left antecubital; 14:27 Drug: Diatrizoate Meglumine & Sodium 10 ml [diatrizoate meglumine and diat.sodium 66 kc3 %-10 % oral solution (10 mL)] Route: PO; 15:32 Drug: NS 0.9% 1000 ml [sodium chloride 0.9 % injection solution] Route: IV; Rate: dsf bolus; Site: left antecubital; 17:10 Follow up: IV Status: Infusion discontinued; IV Intake: 700ml dsf 16:56 Drug: Acetaminophen 975 mg [acetaminophen 325 mg tablet (3 tabs)] Route: PO; kc3 Signatures: Dispatcher [employer] EDMS Ethel Singletary, Reg Reg gb Javon Fitzgerald RN RN mlb1 Zahra Marr, PSA PSA ml4 Monahan,AmiINGRID farrar RN, Diane, PA-C PA-C dt4 Abdulaziz Villaseñor, SENIOR LOAN PROCESSOR SENIOR LOAN PROCESSOR jrd Denise Moore,INGRID RN kc3 Pelon Myers, Reg Reg pm4 The chart was reviewed and I authenticate all verbal orders and agree with the evaluation and treatment provided.Attachments: 13:47 [facility] Payment Agreement pm4 03/28 08:19 T-Sheet-- Draft Copy gb Chart Complete MTDD
--- NOTE | 2016-03-28 18:11 | EDDOCDS ---
Nurse's Notes [facility] Name: Gonzalo Stevens Age: 35 yrs Sex: Male : 1980 Arrival Date: 03/26/2016 Time: 11:42 Bed I4 / M4 Private MD: No Pcp Diagnosis: Nausea;Dehydration-WITH SLIGHTLY ELEVATED CPK;Anxiety disorder, unspecified Presentation: 03/26 11:46 Presenting complaint: Patient states: Not feeling well since last Thursday, body aches mlb1 fatigue, and nausea. Adult Sepsis Screening: The patient does not have new or worsening altered mentation. Patient's respiratory rate is less than 22. Systolic blood pressure is greater than 100. Patient has a qSOFA score of 0- Negative Sepsis Screen. Suicide/Homicide risk assessment- the patient denies having any suicidal and/or homicidal ideations and does not present with any other emotional, behavioral or mental health complaints. Status: Patient is not a floor service worker spring or dependent. Transition of care: patient was not received from another setting of care. 11:46 Acuity: IRA Level 4 mlb1 11:46 Method Of Arrival: Walkin/Carried/Asstd mlb1 Triage Assessment: 11:49 General: Appears in no apparent distress, Behavior is cooperative. General: Reports mlb1 feeling ill for > 3 days. Pain: Location: "all over" Pain currently is 10 out of 10 on a pain scale. HIV screening NA for this visit Offered previously. GI: Reports nausea. Historical: - Allergies: no known allergies; - Home Meds: 1. Zofran (as hydrochloride) 4 mg Oral tab every 8 hours as needed 2. Penicillin VK Unknown Oral three times a day - PMHx: none; - PSHx: none; - Social history: Smoking status: Patient states was never smoker of tobacco. No barriers to communication noted, The patient speaks fluent Mauritian, Speaks appropriately for age. - Family history: Not pertinent. - : The pt / caregiver states he / she is not on anticoagulants. Home medication list is obtained from the patient. - Exposure Risk Screening:: None identified. Screenin:03 Screening information is obtained from the patient. Fall risk: No risks identified. kc3 Assistance ADL's: requires no assistance with activities of daily living. Abuse/DV Screen: The patient / caregiver reports he/she is: not in a situation that causes fear, pain or injury. Nutritional screening: No deficits noted. home support is adequate. 16:20 Advance Directives: Currently, there is no health care proxy. dsf Assessment: 13:17 Adult Sepsis Screening: Patient's respiratory rate is less than 22. Systolic blood dsf pressure is greater than 100. Patient has a qSOFA score of 0- Negative Sepsis Screen. General: Appears ill, Behavior is appropriate for age. Pain: Location: all over body Pain currently is 10 out of 10 on a pain scale. Quality of pain is described as aching. Neurological: Level of Consciousness is awake, alert, Oriented to person, place, time. Cardiovascular: Capillary refill < 3 seconds. Respiratory: Airway is patent Respiratory effort is even, unlabored, Respiratory pattern is regular, symmetrical. GI: Reports nausea. Derm: Skin is pink, warm & dry. 14:05 General: pt states nausea is better after Phenergan infusion done . dsf 15:17 Adult Sepsis Screening: The patient does not have new or worsening altered mentation. kc3 Patient's respiratory rate is less than 22. Systolic blood pressure is greater than 100. Patient has a qSOFA score of 0- Negative Sepsis Screen. 15:19 General: Appears ill, Behavior is appropriate for age, cooperative. Neurological: Level dsf of Consciousness is awake, alert. Cardiovascular: Capillary refill < 3 seconds. Respiratory: Airway is patent Respiratory effort is even, unlabored, Respiratory pattern is regular, symmetrical. GI: Reports nausea. Derm: Skin is pink, warm & dry. 16:20 General: Appears in no apparent distress, Behavior is appropriate for age, cooperative. dsf Pain: Location: all over body Pain currently is 6 out of 10 on a pain scale. Neurological: Level of Consciousness is awake, alert, Oriented to person, place, time. Cardiovascular: Capillary refill < 3 seconds. Respiratory: Airway is patent Respiratory effort is even, unlabored, Respiratory pattern is regular, symmetrical. Derm: Skin is pink, warm & dry. 17:08 General: Appears in no apparent distress, Behavior is appropriate for age, cooperative. dsf Neurological: Level of Consciousness is awake, alert. Cardiovascular: Capillary refill < 3 seconds. Respiratory: Airway is patent Respiratory effort is even, unlabored, Respiratory pattern is regular, symmetrical. Derm: Skin is pink, warm & dry. Social Work Consult: 17:00 Social Work Note: Met pt at bedside regarding possible depression symptoms(body aches, ml4 fatigue, and nausea). He admits suffering from symptoms for the past week, unable to drink or eat over the past few days. He reports struggling with the of his Mother who 3 years ago from Lupus. The upcoming anniversary of her is in May and states, "I'm just having a hard time." He admits to vague SI due to his discomfort and states, "I'm not suicidal, but I just done feel good." He continues to deny SI and HI, able to CFS. Referrals for outpt services was given at bedside. No concerns noted. Vital Signs: 11:44 BP 121 / 75; Pulse 58; Resp 18; Temp 97.8(O); Pulse Ox 100% ; Weight 68.04 kg; Height 5 cmb ft. 10 in. (177.80 cm); Pain 9/10; 16:20 BP 140 / 76; Pulse 46; Resp 20; Temp 100.2(T); Pulse Ox 98% on R/A; Pain 6/10; dsf 11:44 Body Mass Index 21.52 (68.04 kg, 177.80 cm) cmb Vitals: 11:44 Log In Time: March 26, 2016 at 11:41. cmb 13:39 Strep Screen is obtained and tested: Negative, a GATSNEG culture is ordered in [facility] kc3 and sent. ED Course: 11:43 Patient visited by Shena Benitez. cmb 11:43 Patient moved to Waiting cmb 11:44 No Pcp is Private Physician. cmb 11:45 Patient moved to Pre RCE cmb 11:46 Patient visited by Javon Fitzgerald, RN. mlb1 11:47 Triage Initiated mlb1 11:50 Patient visited by Javon Fitzgerald, INGRID. mlb1 12:14 Patient moved to Triage 3 ttb 12:51 Aneta Lee PA-C is PHCP. dt4 12:51 Giovana Lewis MD is Attending Physician. dt4 12:51 Patient visited by Aneta Lee PA-C. dt4 13:17 Patient moved to I4 / M4 ct3 13:27 BLOOD CULTURES Sent. dsf 13:27 Amylase Sent. dsf 13:27 Basic Metabolic Profile Sent. dsf 13:27 CBC with Diff Sent. dsf 13:27 Liver Profile Sent. dsf 13:27 Lipase Sent. dsf 13:27 Inserted saline lock: 18 gauge in right antecubital area The patient tolerated the dsf procedure well. 13:28 Monoscreen Sent. dsf 13:28 Creatine Phosphokinase Sent. dsf 13:28 Magnesium Level Sent. dsf 13:28 Lactic Acid (Aleman tube on ice) Sent. dsf 13:45 Patient name changed from Gonzalo\\S\\\\S\\Hilda\\S\\ to Gonzalo\\S\\ \\S\\Hilda. EDMS 13:47 [facility] [place] into [employer] and attached to record. pm4 13:48 GATS (NEGATIVE STREP SCREEN) Sent. kc3 13:56 Patient visited by Denise Moore RN. kc3 14:06 Patient visited by Ami Monahan RN. dsf 14:[address] dsf 14:56 Patient moved to I4 / M4 dsf 14:56 Chest, 2 View (pa\\E\\lat) Returned. EDMS 15:02 Urine Culture Sent. kc3 15:03 Patient visited by Denise Moore RN. kc3 15:03 The patient / caregiver is instructed regarding the plan of care and ED course. kc3 15:19 Patient visited by Ami Monahan RN. dsf 16:15 Patient visited by Denise Moore,INGRID. kc3 16:21 Patient visited by Ami Monahan RN. dsf 16:43 Patient visited by Zahra Marr PSA. ml4 17:09 Discontinued lock intact, bleeding controlled, pressure dressing applied, No dsf redness/swelling at site. No procedures done that require assistance. 17:10 PSA Outpatient Referrals was scanned into [employer] and attached to record. ml4 22:33 CT ABD & PELVIS: IV and Oral Contrast Returned. EDMS 01 08:19 T-Sheet-- Draft Copy was scanned into [employer] and attached to record. gb Administered Medications: 03/26 13:40 Drug: Diatrizoate Meglumine & Sodium 10 ml [diatrizoate meglumine and diat.sodium 66 dsf %-10 % oral solution (10 mL)] Route: PO; 13:41 Drug: NS 0.9% 1000 ml [sodium chloride 0.9 % injection solution] Route: IV; Rate: dsf bolus; Site: left antecubital; 17:10 Follow up: IV Status: Completed infusion; IV Intake: 1000ml dsf 13:41 Drug: Promethazine 25 mg [promethazine 25 mg/mL injection solution (1 mL)] Route: IVP; dsf Site: left antecubital; 14:27 Drug: Diatrizoate Meglumine & Sodium 10 ml [diatrizoate meglumine and diat.sodium 66 kc3 %-10 % oral solution (10 mL)] Route: PO; 15:32 Drug: NS 0.9% 1000 ml [sodium chloride 0.9 % injection solution] Route: IV; Rate: dsf bolus; Site: left antecubital; 17:10 Follow up: IV Status: Infusion discontinued; IV Intake: 700ml dsf 16:56 Drug: Acetaminophen 975 mg [acetaminophen 325 mg tablet (3 tabs)] Route: PO; kc3 Point of Care Testing: Blood Glucose: 13:39 Blood Glucose: 88 mg/dL; kc3 Ranges: Intake: 17:10 IV: 1000.00ml; Total: 1000.00ml. dsf 17:10 IV: 700.00ml; Total: 1700.00ml. dsf Order Results: Lab Order: Magnesium Level; SPEC'M 03/26/16 13:25 Test: MAGNESIUM LEVEL; Value: 2.1; Range: 1.8-2.4; Units: MG/DL; Status: F Lab Order: Creatine Phosphokinase; SPEC'M 03/26/16 13:25 Test: CPK CREATINE PHOSPHOKINASE; Value: 533; Range: 39-308; Abnormal: Above high normal; Units: U/L; Status: F Lab Order: Urinalysis; SPEC'M 03/26/16 14:58 Test: APPEARANCE, URINE; Value: CLEAR; Range: CLEAR; Status: F Test: COLOR, URINE; Value: YELLOW; Range: YELLOW; Status: F Test: PH,URINE; Value: 7.0; Range: 5.0-9.0; Units: UNITS; Status: F Test: SPECIFIC GRAVITY URINE AUTO; Value: 1.012; Range: 1.002-1.035; Status: F Test: PROTEIN, URINE AUTO; Value: 1+; Range: NEGATIVE; Abnormal: Above high normal; Units: mg/dL; Status: F Test: GLUCOSE, URINE (UA) AUTO; Value: NEGATIVE; Range: NEGATIVE; Units: mg/dL; Status: F Test: KETONE, URINE AUTO; Value: 1+; Range: NEGATIVE; Abnormal: Above high normal; Units: mg/dL; Status: F Test: UROBILINOGEN, URINE AUTO; Value: 0.2; Range: 0.0-2.0; Units: mg/dL; Status: F Test: BILIRUBIN, URINE AUTO; Value: NEGATIVE; Range: NEGATIVE; Status: F Test: NITRITE, URINE AUTO; Value: NEGATIVE; Range: NEGATIVE; Status: F Test: LEUKOCYTE ESTERASE, URINE AUTO; Value: NEGATIVE; Range: NEGATIVE; Status: F Test: BLOOD, URINE BLOOD; Value: NEGATIVE; Range: NEGATIVE; Status: F Test: WBC, URINE AUTO; Value: 1; Range: 0-3; Units: /HPF; Status: F Test: RBC, URINE AUTO; Value: 1; Range: 0-3; Units: /HPF; Status: F Test: BACTERIA, URINE AUTO; Value: NEGATIVE; Range: NEGATIVE; Status: F Test: SQUAMOUS EPITHELIAL CELL UR AU; Value: 0; Range: 0-6; Units: /HPF; Status: F Test: MUCUS, URINE; Value: SMALL; Range: NEGATIVE; Status: F Test: HYALINE CAST, URINE AUTO; Value: 0; Range: 0-1; Units: /LPF; Status: F Lab Order: Urine Culture; SPEC'M 03/26/16 14:58 Test: URINE CULTURE; Value: URINE CULTURE RESULT NO GROWTH; Status: F Lab Order: Monoscreen; SPEC'M 03/26/16 13:25 Test: MONO SCRN; Value: NEGATIVE; Range: NEGATIVE; Status: F Lab Order: -Blood Culture; SPEC'M 03/26/16 13:25 Test: BLOOD CULTURE; Value: No growth after 24 hours . All specimens observed; Status: F Test: BLOOD CULTURE; Value: for 5 days. Results final at that time.; Status: F Test: BLOOD CULTURE; Value: No Growth after 48 hours. All Specimens observed; Status: F Test: BLOOD CULTURE; Value: for 7 days. Results final at that time.; Status: F Lab Order: Lactic Acid (Aleman tube on ice); SPEC'M 03/26/16 13:25 Test: LACTIC ACID LEVEL, LACTATE; Value: 1.6; Range: 0.4-2.0; Units: MMOL/L; Status: F Lab Order: Amylase; SPEC'M 03/26/16 13:25 Test: AMYLASE; Value: 55; Range: 25-115; Units: U/L; Status: F Lab Order: Basic Metabolic Profile; SPEC'M 03/26/16 13:25 Test: GLUCOSE, FASTING; Value: 82; Range: 70-105; Units: MG/DL; Status: F Test: BLOOD UREA NITROGEN; Value: 12; Range: 7-18; Units: MG/DL; Status: F Test: CREATININE FOR GFR; Value: 1.04; Range: 0.70-1.30; Units: MG/DL; Status: F Test: GLOMERULAR FILTRATION RATE; Value: > 60.0; Range: >60; Status: F Test: SODIUM LEVEL; Value: 142; Range: 136-145; Units: MEQ/L; Status: F Test: POTASSIUM SERUM; Value: 3.9; Range: 3.5-5.1; Units: MEQ/L; Status: F Test: CHLORIDE LEVEL; Value: 109; Range: 98-107; Abnormal: Above high normal; Units: MEQ/L; Status: F Test: CARBON DIOXIDE LEVEL; Value: 23; Range: 21-32; Units: MEQ/L; Status: F Test: ANION GAP; Value: 10; Range: 8-16; Units: MEQ/L; Status: F Test: CALCIUM LEVEL; Value: 9.1; Range: 8.5-10.1; Units: MG/DL; Status: F Test Note: ; Units are mL/min/1.73 m2 Chronic Kidney Disease Staging per NKF: Stage I & II GFR >=60 Normal to Mildly Decreased Stage III GFR 30-59 Moderately Decreased Stage IV GFR 15-29 Severely Decreased Stage V GFR <15 Very Little GFR Left ESRD GFR <15 on MOTOR OVERHAULER Lab Order: CBC with Diff; SPEC'M 03/26/16 13:25 Test: WHITE BLOOD COUNT; Value: 8.2; Range: 4.0-10.0; Units: K/mm3; Status: F Test: RED BLOOD COUNT; Value: 4.39; Range: 4.30-6.10; Units: M/mm3; Status: F Test: HEMOGLOBIN; Value: 12.4; Range: 14.0-18.0; Abnormal: Below low normal; Units: g/dl; Status: F Test: HEMATOCRIT; Value: 37.2; Range: 42.0-52.0; Abnormal: Below low normal; Units: %; Status: F Test: MEAN CORPUSCULAR VOLUME; Value: 84.8; Range: 80.0-96.0; Units: fl; Status: F Test: MEAN CORPUSCULAR HEMOGLOBIN; Value: 28.3; Range: 27.0-33.0; Units: pg; Status: F Test: MEAN CORPUSCULAR HGB CONC; Value: 33.4; Range: 32.0-36.5; Units: g/dl; Status: F Test: RED CELL DISTRIBUTION WIDTH; Value: 14.1; Range: 11.5-14.5; Units: %; Status: F Test: PLATELET COUNT, AUTOMATED; Value: 141; Range: 150-450; Abnormal: Below low normal; Units: k/mm3; Status: F Test: NEUTROPHILS %; Value: 62.0; Range: 36.0-66.0; Units: %; Status: F Test: LYMPH %; Value: 29.0; Range: 24.0-44.0; Units: %; Status: F Test: MONO %; Value: 4.3; Range: 0.0-5.0; Units: %; Status: F Test: EOS %; Value: 2.4; Range: 0.0-3.0; Units: %; Status: F Test: BASO %; Value: 0.7; Range: 0.0-1.0; Units: %; Status: F Test: LARGE UNSTAINED CELL %; Value: 1.6; Range: 0.0-4.0; Units: %; Status: F Test: NEUTROPHILS #; Value: 5.1; Range: 1.8-7.7; Units: K/mm3; Status: F Test: LYMPH #; Value: 2.5; Range: 1.5-4.5; Units: K/mm3; Status: F Test: MONO #; Value: 0.4; Range: 0.0-0.8; Units: K/mm3; Status: F Test: EOS #; Value: 0.2; Range: 0.0-0.50; Units: K/mm3; Status: F Test: BASO #; Value: 0.0; Range: 0.0-0.2; Units: K/mm3; Status: F Test: LARGE UNSTAINED CELL #; Value: 0.1; Range: 0.0-0.4; Units: K/mm3; Status: F Lab Order: Lipase; SPEC'M 03/26/16 13:25 Test: LIPASE; Value: 137; Range: 73-393; Units: U/L; Status: F Lab Order: Liver Profile; SPEC'M 03/26/16 13:25 Test: AST/SGOT; Value: 30; Range: 15-37; Units: U/L; Status: F Test: ALT/SGPT; Value: 31; Range: 12-78; Units: U/L; Status: F Test: ALKALINE PHOSPHATASE; Value: 56; Range: 45-117; Units: U/L; Status: F Test: BILIRUBIN,TOTAL; Value: 0.7; Range: 0.2-1.0; Units: MG/DL; Status: F Test: BILIRUBIN,DIRECT; Value: 0.1; Range: 0.0-0.2; Units: MG/DL; Status: F Test: TOTAL PROTEIN; Value: 8.5; Range: 6.4-8.2; Abnormal: Above high normal; Units: GM/DL; Status: F Test: ALBUMIN; Value: 4.5; Range: 3.2-5.2; Units: GM/DL; Status: F Test: ALBUMIN/GLOBULIN RATIO; Value: 1.13; Range: 1.00-1.93; Status: F Lab Order: BLOOD CULTURES; SPEC'M 03/26/16 13:46 Test: BLOOD CULTURE; Value: No growth after 24 hours . All specimens observed; Status: F Test: BLOOD CULTURE; Value: for 5 days. Results final at that time.; Status: F Test: BLOOD CULTURE; Value: No Growth after 48 hours. All Specimens observed; Status: F Test: BLOOD CULTURE; Value: for 7 days. Results final at that time.; Status: F Lab Order: GATS (NEGATIVE STREP SCREEN); SPEC'M 03/26/16 13:46 Test: GATS CULTURE (NEG STREP SCR); Value: GATS RESULT NEGATIVE FOR STREP PYOGENES (GROUP A); Status: F Lab Order: Fingerstick Blood Sugar; SPEC'M 03/26/16 13:37 Test: BEDSIDE GLUCOSE; Value: 88; Range: 70-105; Units: MG/DL; Status: F Radiology Order: Chest, 2 View (pa\\E\\lat) Test: Chest, 2 View (pa\\E\\lat) REASON FOR EXAMINATION: CHILLS; PA and lateral chest 03/26/2016; ; Indication: Chills; ; Comparison: PA and lateral chest radiographs 06/08/2015, and 09/24/2013; ; Findings: Cardiomediastinal silhouette is normal. Lungs are clear bilaterally.; Bones and soft tissues are within normal limits.; ; Impression; 1. No acute cardiopulmonary process or interval change; ; ; ; ; Signed by; Marycruz Jarvis MD 03/26/2016 02:26 P; Radiology Order: CT ABD & PELVIS: IV and Oral Contrast Test: CT ABD & PELVIS: IV and Oral Contrast REASON FOR EXAMINATION: N/V;Abd. Pain - Generalized, Nn-focal Exam; CT abdomen/ pelvis with IV and oral contrast 03/26/2016; ; Indication : Nausea vomiting abdominal pain, generalized; nonfocal exam; ; Comparison: CT pelvis 06/08/2015 performed at [facility].; ; Technique: After drinking 2 cups of oral contrast, each containing 10 ml; gastrographin in 290 ml water, 100 ml Isovue 370 mg/ml was subsequently injected; intravenously. 3 mm spiral sections were performed through the abdomen and; pelvis.; ; Findings: lung bases are clear bilaterally. Liver, spleen, pancreas and adrenal; glands are normal . Kidneys are without hydronephrosis or obstructing ureteral; calculi bilaterally. Stomach small bowel are within normal limits. The terminal; ileum and appendix are normal. Abdominal aorta is of normal course and caliber.; ; Bladder, prostate are normal. There are a few scattered sigmoid diverticula.; There is moderate stool within right and transverse colon. There is no free air; or ascites; ; There is old bilateral L5 spondylolysis, without spondylolisthesis; ; Impression: No acute intra-abdominal or pelvic pathology; ; Old bilateral L5 spondylolysis without spondylolisthesis.; ; Moderate bladder distension; ; ; ; ; ; ; Signed by; Marycruz Jarvis MD 03/26/2016 09:51 P; Outcome: 17:01 Discharge ordered by Provider. dt4 17:09 Discharge Assessment: Patient awake, alert and oriented x 3. No cognitive and/or dsf functional deficits noted. Patient verbalized understanding of disposition instructions. patient administered narcotics - no. The following High Risk Discharge criteria are identified: None. Discharged to home ambulatory, with significant other. Condition: stable. Discharge instructions given to patient, Instructed on discharge instructions, follow up and referral plans. medication usage, no driving heavy equipment, Demonstrated understanding of instructions, medications, Pt was receptive of discharge instructions/ teaching. Prescriptions given X 2. CT Study completed. Property sent home with patient. 17:09 Patient left the ED. dsf Signatures: Dispatcher [employer] EDMS Ethel Singletary, Reg Reg gb Javon Fitzgerald RN RN mlb1 Zahra Marr, PSA PSA ml4 Latoya Walker, PAYABLE PROCESSOR PAYABLE PROCESSOR ct3 Ami Monahan RN RN dsf Shena Benitez cmLis Pineda RN RN ttb Aneta Lee, PA-C PA-C dt4 Denise Moore RN RN kc3 Pelon Myers, Reg Reg pm4 Chart Complete MTDD
== END 2016-03-26 17:09 | disposition home or self-care (01) ==
LOC: M ED 11:42
DX: F41.9 Anxiety disorder, unspecified (principal); R11.0 Nausea; E86.0 Dehydration; R74.8 Abnormal levels of other serum enzymes
CPT/HCPCS: 36415; 71020; 74177; 80048; 80076; 81001; 82150; 82550; 83605; 83690; 83735; 85025; 86308; 87040; 87086; 87880; 96361; 96374; 99284; Q9963; Q9967

== ENCOUNTER 2016-03-28 18:42 | Emergency (ER) | payer BC ==
[2016-03-28] MEDS ORDERED: KETOROLAC 30 MG/ML VIAL (J1885) As Ordered ONE (19:56)
[2016-03-28] MEDS ORDERED: ONDANSETRON 4MG/2ML VIAL (J2405) As Ordered ONE (19:56)
[2016-03-28 20:04] LABS: BASO % 0.4 % (0.0-1.0); EOS # 0.3 K/mm3 (0.0-0.50); EOS % 3.8 % (0.0-3.0); LARGE UNSTAINED CELL # 0.2 K/mm3 (0.0-0.4); LARGE UNSTAINED CELL % 2.2 % (0.0-4.0); LYMPH # 2.5 K/mm3 (1.5-4.5); LYMPH % 29.3 % (24.0-44.0); MEAN CORPUSCULAR HEMOGLOBIN 28.3 pg (27.0-33.0); MEAN CORPUSCULAR HGB CONC 33.7 g/dl (32.0-36.5); MONO # 0.5 K/mm3 (0.0-0.8); MONO % 6.1 % (0.0-5.0); NEUTROPHILS % 58.2 % (36.0-66.0); PLATELET COUNT, AUTOMATED 202 k/mm3 (150-450); RED CELL DISTRIBUTION WIDTH 13.3 % (11.5-14.5); WHITE BLOOD COUNT 8.5 K/mm3 (4.0-10.0)
[2016-03-28] MEDS ORDERED: PROMETHAZINE INJ 25 MG/ML VIAL (J2550) As Ordered ONE (20:09)
[2016-03-28 20:37] LABS: ALBUMIN 4.4 GM/DL (3.2-5.2); ALBUMIN/GLOBULIN RATIO 1.13 (1.00-1.93); ALKALINE PHOSPHATASE 56 U/L (45-117); ALT/SGPT 28 U/L (12-78); ANION GAP 9 MEQ/L (8-16); AST/SGOT 19 U/L (15-37); BILIRUBIN,DIRECT 0.2 MG/DL (0.0-0.2); BILIRUBIN,TOTAL 0.7 MG/DL (0.2-1.0); BLOOD UREA NITROGEN 16 MG/DL (7-18); CALCIUM LEVEL 9.4 MG/DL (8.5-10.1); CARBON DIOXIDE LEVEL 27 MEQ/L (21-32); CHLORIDE LEVEL 108 MEQ/L (98-107); CREATININE FOR GFR 1.06 MG/DL (0.70-1.30); GLOMERULAR FILTRATION RATE > 60.0 (>60); GLUCOSE, FASTING 87 MG/DL (70-105); MAGNESIUM LEVEL 2.1 MG/DL (1.8-2.4); POTASSIUM SERUM 3.4 MEQ/L (3.5-5.1); SODIUM LEVEL 144 MEQ/L (136-145); TOTAL PROTEIN 8.3 GM/DL (6.4-8.2)
--- NOTE | 2016-03-28 22:03 | EDDOCDS ---
Nurse's Notes [facility] Name: Gonzalo Stevens Age: 35 yrs Sex: Male : 1980 Arrival Date: 03/28/2016 Time: 18:42 Bed I2 / M2 Private MD: No Pcp Diagnosis: Nausea and vomiting;Viral infection, unspecified Presentation: 03/28 18:47 Presenting complaint: Patient states: states that he was seen here one Thursday by ml6 Aneta for N/V told to return today for a recheck of symptoms and labs. Adult Sepsis Screening: The patient does not have new or worsening altered mentation. Patient's respiratory rate is less than 22. Systolic blood pressure is greater than 100. Patient has a qSOFA score of 0- Negative Sepsis Screen. Suicide/Homicide risk assessment- the patient denies having any suicidal and/or homicidal ideations and does not present with any other emotional, behavioral or mental health complaints. 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 Transition of care: patient was not received from another setting of care. 18:47 Acuity: IRA Level 3 ml6 18:47 Method Of Arrival: Walkin/Carried/Asstd ml6 Triage Assessment: 18:50 General: Appears in no apparent distress, Behavior is appropriate for age, cooperative. ml6 Pain: Denies pain. HIV screening NA for this visit Offered previously. Neurological: No deficits noted. Level of Consciousness is awake, alert, Oriented to person, place, time. Cardiovascular: No deficits noted. Capillary refill < 3 seconds is brisk in bilateral fingers toes. Respiratory: No deficits noted. Airway is patent Respiratory effort is even, unlabored, Respiratory pattern is regular, symmetrical, Breath sounds are clear bilaterally. GI: Abdomen is flat, non- distended Bowel sounds present X 4 quads. Abd is soft and non tender X 4 quads. Reports nausea, Denies diarrhea, vomiting, pain. Historical: - Allergies: no known allergies; - Home Meds: 1. promethazine 25 mg Oral tab 1 tab every 6 hours (Last dose: 03/28/2016 14:00) 2. Xanax 0.25 mg Oral tab 1 tab 3 times per day (Last dose: 03/28/2016 18:00) - PMHx: sickle cell trait; - PSHx: none; - Social history: Smoking status: Patient states was never smoker of tobacco. No barriers to communication noted, Speaks appropriately for age. - Family history: Not pertinent. - : The pt / caregiver states he / she is not on anticoagulants. Home medication list is obtained from the patient. - Exposure Risk Screening:: None identified. Screenin:28 Screening information is obtained from the patient. Fall risk: No risks identified. ms18 Assistance ADL's: requires no assistance with activities of daily living. Abuse/DV Screen: The patient / caregiver reports he/she is: not in a situation that causes fear, pain or injury. Nutritional screening: No deficits noted. Advance Directives: There is no living will. home support is adequate. Assessment: 19:45 General: Appears in no apparent distress, comfortable, Behavior is appropriate for age, ms18 cooperative, quiet. Pain: Location: abdomen. Neurological: Level of Consciousness is awake, alert, obeys commands, Oriented to person, place, time. Respiratory: No deficits noted. GI: Abdomen is flat, non- distended Reports nausea, intolerance of food, intolerance of fluids. Derm: Skin is pink, warm & dry. 20:15 General: Pt requesting Phenergan instead of Zofran. Provider made aware and medication ld5 changed. Pt medicated per orders. Lights dimmed for comfort. Will continue to monitor. 20:46 General: Pt reports no significant change in symptoms. Provider aware. Fluids remain ld5 infusing. Will continue to monitor. 21:28 General: Appears in no apparent distress, comfortable, Behavior is appropriate for age, ms18 cooperative. Neurological: Level of Consciousness is awake, alert, obeys commands, Oriented to person, place, time. Respiratory: No deficits noted. Derm: Skin is pink, warm & dry. 21:50 General: Stool collection kit explained to pt and SO. Discharge paperwork discussed and ld5 given. Neurological: Level of Consciousness is awake, obeys commands. Respiratory: Airway is patent Respiratory effort is even, unlabored. Vital Signs: 18:45 BP 114 / 79; Pulse 49; Resp 18; Temp 97.4(O); Pulse Ox 100% on R/A; Weight 68.04 kg; sew Height 5 ft. 10 in. (177.80 cm); Pain 0/10; 21:28 BP 125 / 84; Pulse 52; Resp 18; Temp 97.2(O); Pulse Ox 100% ; ms18 18:45 Body Mass Index 21.52 (68.04 kg, 177.80 cm) [facility] Vitals: 18:45 Log In Time: March 28, 2016 at 18:43. sew ED Course: 18:44 Patient visited by Giovana Reese. sew 18:44 Patient moved to Waiting sew 18:45 No Pcp is Private Physician. sew 18:46 Patient visited by Giovana Reese. sew 18:46 Patient moved to Pre RCE sew 18:48 Triage Initiated ml6 19:18 Patient moved to Triage 1 cj 19:19 Patient visited by Colette Duron PCA. jb5 19:25 Denis Webb PA-C is PHCP. cc10 19:25 Hever Damon DO is Attending Physician. cc10 19:25 Patient visited by Denis Webb PA-C. cc10 19:25 Patient visited by Denis Webb PA-C. cc10 19:30 Patient moved to I2 / M2 [facility] 19:37 Urinalysis Sent. jb5 19:45 Inserted saline lock: 18 gauge in right antecubital area and blood collected. The ms18 patient tolerated the procedure well. 19:48 Patient visited by Frieda Cormier RN. ms18 19:48 MAGNESIUM LEVEL Sent. ms18 19:48 Creatine Phosphokinase Sent. ms18 19:48 Basic Metabolic Profile Sent. ms18 19:48 CBC with Diff Sent. ms18 19:48 Lipase Sent. ms18 19:48 Liver Profile Sent. ms18 20:16 Patient visited by Kalpana Carreon RN. ld5 20:20 Patient name changed from Gonzalo\S\\S\Hilda\S\ to Gonzalo\S\ \S\Hilda. EDMS 20:20 [facility] [place] Payment Agreement was scanned into [employer] and attached to record. zo 20:47 Patient visited by Kalpana Carreon,INGRID. ld5 20:47 Patient visited by Frieda Cormier,INGRID. ms18 21:21 [facility] is Referral Physician. cc10 21:28 The patient / caregiver is instructed regarding the plan of care and ED course. ms18 Accompanied by Significant Other, Patient has correct armband on for positive identification. Placed in gown. Bed in low position. Call light in reach. Property sent home with patient. :Personal belongings accompany Pt. 21:28 Discontinued IV lock intact, bleeding controlled, pressure dressing applied, No ms18 redness/swelling at site. No procedures done that require assistance. 21:52 Patient visited by Kalpana Carreon RN. ld5 Administered Medications: 20:02 Drug: NS 0.9% 1000 ml [sodium chloride 0.9 % intravenous solution] Route: IV; Rate: ld5 bolus; Site: right antecubital; 21:28 Follow up: IV Status: Completed infusion; IV Intake: 1000ml ms18 20:03 Drug: ketorolac 30 mg [ketorolac 30 mg/mL (1 mL) injection solution (1 mL)] Route: IVP; ld5 Site: right antecubital; 20:46 Follow up: Response: No significant change. ld5 20:06 CANCELLED (Patient Refused): Ondansetron 4 mg IVP once cc10 20:14 Drug: Promethazine 25 mg [promethazine 25 mg/mL injection solution (1 mL)] Route: IVP; ld5 Site: right antecubital; 20:45 Follow up: Response: No significant change. ld5 Intake: 21:28 IV: 1000.00ml; Total: 1000.00ml. ms18 Order Results: Lab Order: Basic Metabolic Profile; SPEC'M 03/28/16 19:47 Test: GLUCOSE, FASTING; Value: 87; Range: 70-105; Units: MG/DL; Status: F Test: BLOOD UREA NITROGEN; Value: 16; Range: 7-18; Units: MG/DL; Status: F Test: CREATININE FOR GFR; Value: 1.06; Range: 0.70-1.30; Units: MG/DL; Status: F Test: GLOMERULAR FILTRATION RATE; Value: > 60.0; Range: >60; Status: F Test: SODIUM LEVEL; Value: 144; Range: 136-145; Units: MEQ/L; Status: F Test: POTASSIUM SERUM; Value: 3.4; Range: 3.5-5.1; Abnormal: Below low normal; Units: MEQ/L; Status: F Test: CHLORIDE LEVEL; Value: 108; Range: 98-107; Abnormal: Above high normal; Units: MEQ/L; Status: F Test: CARBON DIOXIDE LEVEL; Value: 27; Range: 21-32; Units: MEQ/L; Status: F Test: ANION GAP; Value: 9; Range: 8-16; Units: MEQ/L; Status: F Test: CALCIUM LEVEL; Value: 9.4; Range: 8.5-10.1; Units: MG/DL; Status: F Test Note: ; Units are mL/min/1.73 m2 Chronic Kidney Disease Staging per NKF: Stage I & II GFR >=60 Normal to Mildly Decreased Stage III GFR 30-59 Moderately Decreased Stage IV GFR 15-29 Severely Decreased Stage V GFR <15 Very Little GFR Left ESRD GFR <15 on SAND CONDITIONER Lab Order: CBC with Diff; SPEC'M 03/28/16 19:47 Test: WHITE BLOOD COUNT; Value: 8.5; Range: 4.0-10.0; Units: K/mm3; Status: F Test: RED BLOOD COUNT; Value: 4.42; Range: 4.30-6.10; Units: M/mm3; Status: F Test: HEMOGLOBIN; Value: 12.5; Range: 14.0-18.0; Abnormal: Below low normal; Units: g/dl; Status: F Test: HEMATOCRIT; Value: 37.2; Range: 42.0-52.0; Abnormal: Below low normal; Units: %; Status: F Test: MEAN CORPUSCULAR VOLUME; Value: 84.0; Range: 80.0-96.0; Units: fl; Status: F Test: MEAN CORPUSCULAR HEMOGLOBIN; Value: 28.3; Range: 27.0-33.0; Units: pg; Status: F Test: MEAN CORPUSCULAR HGB CONC; Value: 33.7; Range: 32.0-36.5; Units: g/dl; Status: F Test: RED CELL DISTRIBUTION WIDTH; Value: 13.3; Range: 11.5-14.5; Units: %; Status: F Test: PLATELET COUNT, AUTOMATED; Value: 202; Range: 150-450; Units: k/mm3; Status: F Test: NEUTROPHILS %; Value: 58.2; Range: 36.0-66.0; Units: %; Status: F Test: LYMPH %; Value: 29.3; Range: 24.0-44.0; Units: %; Status: F Test: MONO %; Value: 6.1; Range: 0.0-5.0; Abnormal: Above high normal; Units: %; Status: F Test: EOS %; Value: 3.8; Range: 0.0-3.0; Abnormal: Above high normal; Units: %; Status: F Test: BASO %; Value: 0.4; Range: 0.0-1.0; Units: %; Status: F Test: LARGE UNSTAINED CELL %; Value: 2.2; Range: 0.0-4.0; Units: %; Status: F Test: NEUTROPHILS #; Value: 5.0; Range: 1.8-7.7; Units: K/mm3; Status: F Test: LYMPH #; Value: 2.5; Range: 1.5-4.5; Units: K/mm3; Status: F Test: MONO #; Value: 0.5; Range: 0.0-0.8; Units: K/mm3; Status: F Test: EOS #; Value: 0.3; Range: 0.0-0.50; Units: K/mm3; Status: F Test: BASO #; Value: 0.0; Range: 0.0-0.2; Units: K/mm3; Status: F Test: LARGE UNSTAINED CELL #; Value: 0.2; Range: 0.0-0.4; Units: K/mm3; Status: F Lab Order: Lipase; [facility]' 03/28/16 19:47 Test: LIPASE; Value: 133; Range: 73-393; Units: U/L; Status: F Lab Order: Liver Profile; [facility]' 03/28/16 19:47 Test: AST/SGOT; Value: 19; Range: 15-37; Units: U/L; Status: F Test: ALT/SGPT; Value: 28; Range: 12-78; Units: U/L; Status: F Test: ALKALINE PHOSPHATASE; Value: 56; Range: 45-117; Units: U/L; Status: F Test: BILIRUBIN,TOTAL; Value: 0.7; Range: 0.2-1.0; Units: MG/DL; Status: F Test: BILIRUBIN,DIRECT; Value: 0.2; Range: 0.0-0.2; Units: MG/DL; Status: F Test: TOTAL PROTEIN; Value: 8.3; Range: 6.4-8.2; Abnormal: Above high normal; Units: GM/DL; Status: F Test: ALBUMIN; Value: 4.4; Range: 3.2-5.2; Units: GM/DL; Status: F Test: ALBUMIN/GLOBULIN RATIO; Value: 1.13; Range: 1.00-1.93; Status: F Lab Order: Urinalysis; SPEC'M 03/28/16 19:38 Test: APPEARANCE, URINE; Value: HAZY; Range: CLEAR; Status: F Test: COLOR, URINE; Value: YELLOW; Range: YELLOW; Status: F Test: PH,URINE; Value: 6.0; Range: 5.0-9.0; Units: UNITS; Status: F Test: SPECIFIC GRAVITY URINE AUTO; Value: 1.017; Range: 1.002-1.035; Status: F Test: PROTEIN, URINE AUTO; Value: 1+; Range: NEGATIVE; Abnormal: Above high normal; Units: mg/dL; Status: F Test: GLUCOSE, URINE (UA) AUTO; Value: NEGATIVE; Range: NEGATIVE; Units: mg/dL; Status: F Test: KETONE, URINE AUTO; Value: 1+; Range: NEGATIVE; Abnormal: Above high normal; Units: mg/dL; Status: F Test: UROBILINOGEN, URINE AUTO; Value: 0.2; Range: 0.0-2.0; Units: mg/dL; Status: F Test: BILIRUBIN, URINE AUTO; Value: NEGATIVE; Range: NEGATIVE; Status: F Test: NITRITE, URINE AUTO; Value: NEGATIVE; Range: NEGATIVE; Status: F Test: LEUKOCYTE ESTERASE, URINE AUTO; Value: NEGATIVE; Range: NEGATIVE; Status: F Test: BLOOD, URINE BLOOD; Value: NEGATIVE; Range: NEGATIVE; Status: F Test: WBC, URINE AUTO; Value: 2; Range: 0-3; Units: /HPF; Status: F Test: RBC, URINE AUTO; Value: 3; Range: 0-3; Units: /HPF; Status: F Test: BACTERIA, URINE AUTO; Value: NEGATIVE; Range: NEGATIVE; Status: F Test: SQUAMOUS EPITHELIAL CELL UR AU; Value: 1; Range: 0-6; Units: /HPF; Status: F Test: MUCUS, URINE; Value: SMALL; Range: NEGATIVE; Status: F Test: HYALINE CAST, URINE AUTO; Value: 0; Range: 0-1; Units: /LPF; Status: F Lab Order: Creatine Phosphokinase; SPEC'M 03/28/16 19:47 Test: CPK CREATINE PHOSPHOKINASE; Value: 281; Range: 39-308; Units: U/L; Status: F Lab Order: MAGNESIUM LEVEL; SPEC'M 03/28/16 19:47 Test: MAGNESIUM LEVEL; Value: 2.1; Range: 1.8-2.4; Units: MG/DL; Status: F Outcome: 21:22 Discharge ordered by Provider. cc10 21:28 Discharge Assessment: Patient awake, alert and oriented x 3. No cognitive and/or ms18 functional deficits noted. Patient verbalized understanding of disposition instructions. patient administered narcotics - no. The following High Risk Discharge criteria are identified: None. Discharged to home ambulatory, with significant other. Condition: good Condition: stable. Discharge instructions given to patient, Instructed on discharge instructions, follow up and referral plans. medication usage, Demonstrated understanding of instructions, medications, Pt was receptive of discharge instructions/ teaching. Prescriptions given X 1, Work note provided to patient. No special radiology studies were completed. 22:01 Patient left the ED. ld5 Signatures: Dispatcher [employer] EDMS Colette Duron, MARKETING AUTOMATION MANAGER MARKETING AUTOMATION MANAGER jb5 Eileen Naylor Matthew, RN RN ml6 Kalpana Carreon RN RN ld5 Lilly Mendez RN RN Giovana Rai Colin PA-Juan C PA-C cc10 Frieda Cormier,RN RN ms18 MTDD
--- NOTE | 2016-03-28 22:03 | EDDOCDS ---
Physician Documentation [facility] Name: Gonzalo Stevens Age: 35 yrs Sex: Male : 1980 Arrival Date: 03/28/2016 Time: 18:42 Bed I2 / M2 Private MD: No Pcp Disposition: 03/28/16 21:22 Discharged to Home/Self Care. Impression: Nausea and vomiting, Viral infection, unspecified. - Condition is Stable. - Discharge Instructions: Nausea and Vomiting, Viral Infections. - Prescriptions for Reglan 10 mg Oral Tablet - take 1 tablet by ORAL route every 6 hours take 30 minutes before meals and at bedtime; 20 tablet. - Family Work Release, Work Release Form - 2 day, Local Pharmacy Hours, Medication Reconciliation form. - Follow up: Emergency Department; When: As needed. [facility]: [facility]; When: Call to arrange an appointment; Reason: Wound/Symptom Recheck, Recheck today's complaints, Worsening of conditions, Continuance of care, To establish care. - Problem is an ongoing problem. - Symptoms have improved. - Notes: Please submit your stool sample with the lab slip provided BRANDY. Historical: - Allergies: no known allergies; - Home Meds: 1. promethazine 25 mg Oral tab 1 tab every 6 hours (Last dose: 03/28/2016 14:00) 2. Xanax 0.25 mg Oral tab 1 tab 3 times per day (Last dose: 03/28/2016 18:00) - PMHx: sickle cell trait; - PSHx: none; - Social history: Smoking status: Patient states was never smoker of tobacco. No barriers to communication noted, Speaks appropriately for age. - Family history: Not pertinent. - : The pt / caregiver states he / she is not on anticoagulants. Home medication list is obtained from the patient. - Exposure Risk Screening:: None identified. Vital Signs: 03/28 18:45 BP 114 / 79; Pulse 49; Resp 18; Temp 97.4(O); Pulse Ox 100% on R/A; Weight 68.04 kg / sew 150 lbs; Height 5 ft. 10 in. (177.80 cm); Pain 0/10; 21:28 BP 125 / 84; Pulse 52; Resp 18; Temp 97.2(O); Pulse Ox 100% ; ms18 18:45 Body Mass Index 21.52 (68.04 kg, 177.80 cm) sew MDM: 19:30 NS 0.9% 1000 ml IV at bolus once ordered. cc10 19:30 ketorolac 30 mg IVP once ordered. cc10 19:30 IV Saline Lock ordered. cc10 19:30 Undress patient appropriately for examination ordered. cc10 19:31 Basic Metabolic Profile Ordered. EDMS 19:31 CBC with Diff Ordered. EDMS 19:31 Lipase Ordered. EDMS 19:31 Liver Profile Ordered. EDMS 19:31 Urinalysis Ordered. EDMS 19:31 Creatine Phosphokinase Ordered. EDMS 19:31 NOTHING BY MOUTH+DIET ordered. EDMS 19:35 MAGNESIUM LEVEL Ordered. EDMS 20:06 Promethazine 25 mg IVP once; dilute and administer 30-60 minutes ordered. cc10 20:14 Financial registration complete. zo 20:20 [facility] [place] Payment Agreement was scanned into [employer] and attached to record. zo 20:46 Basic Metabolic Profile Reviewed. cc10 20:46 CBC with Diff Reviewed. cc10 20:46 Liver Profile Reviewed. cc10 20:46 Urinalysis Reviewed. cc10 20:46 Lipase Reviewed. cc10 20:46 Creatine Phosphokinase Reviewed. cc10 20:46 MAGNESIUM LEVEL Reviewed. cc10 21:24 Misc. Nursing Order ordered. cc10 Administered Medications: 20:02 Drug: NS 0.9% 1000 ml [sodium chloride 0.9 % intravenous solution] Route: IV; Rate: ld5 bolus; Site: right antecubital; 21:28 Follow up: IV Status: Completed infusion; IV Intake: 1000ml ms18 20:03 Drug: ketorolac 30 mg [ketorolac 30 mg/mL (1 mL) injection solution (1 mL)] Route: IVP; ld5 Site: right antecubital; 20:46 Follow up: Response: No significant change. ld5 20:06 CANCELLED (Patient Refused): Ondansetron 4 mg IVP once cc10 20:14 Drug: Promethazine 25 mg [promethazine 25 mg/mL injection solution (1 mL)] Route: IVP; ld5 Site: right antecubital; 20:45 Follow up: Response: No significant change. ld5 Signatures: Dispatcher [employer] EDMS Eileen Naylor Matthew, RN RN ml6 Kalpana Carreon RN RN ld5 Denis Webb, PAAlexusC PA-C cc10 Frieda CormierRN RN ms18 The chart was reviewed and I authenticate all verbal orders and agree with the evaluation and treatment provided.Corrections: (The following items were deleted from the chart) 19:35 19:32 MAGNESIUM LEVEL+LAB ordered. EDMS EDMS 20:06 19:30 Ondansetron 4 mg IVP once ordered. cc10 cc10 20:06 20:06 Ondansetron 4 mg IVP once ordered. cc10 cc10 Attachments: 20:20 [facility] Payment Agreement zo MTDD
--- NOTE | 2016-04-01 10:02 | EDDOCDS ---
Physician Documentation [facility] Name: Gonzalo Stevens Age: 35 yrs Sex: Male : 1980 Arrival Date: 03/28/2016 Time: 18:42 Bed I2 / M2 Private MD: No Pcp Disposition: 03/28/16 21:22 Discharged to Home/Self Care. Impression: Nausea and vomiting, Viral infection, unspecified. - Condition is Stable. - Discharge Instructions: Nausea and Vomiting, Viral Infections. - Prescriptions for Reglan 10 mg Oral Tablet - take 1 tablet by ORAL route every 6 hours take 30 minutes before meals and at bedtime; 20 tablet. - Family Work Release, Work Release Form - 2 day, Local Pharmacy Hours, Medication Reconciliation form. - Follow up: Emergency Department; When: As needed. [facility]: [facility]; When: Call to arrange an appointment; Reason: Wound/Symptom Recheck, Recheck today's complaints, Worsening of conditions, Continuance of care, To establish care. - Problem is an ongoing problem. - Symptoms have improved. - Notes: Please submit your stool sample with the lab slip provided BRANDY. Historical: - Allergies: no known allergies; - Home Meds: 1. promethazine 25 mg Oral tab 1 tab every 6 hours (Last dose: 03/28/2016 14:00) 2. Xanax 0.25 mg Oral tab 1 tab 3 times per day (Last dose: 03/28/2016 18:00) - PMHx: sickle cell trait; - PSHx: none; - Social history: Smoking status: Patient states was never smoker of tobacco. No barriers to communication noted, Speaks appropriately for age. - Family history: Not pertinent. - : The pt / caregiver states he / she is not on anticoagulants. Home medication list is obtained from the patient. - Exposure Risk Screening:: None identified. Vital Signs: 03/28 18:45 BP 114 / 79; Pulse 49; Resp 18; Temp 97.4(O); Pulse Ox 100% on R/A; Weight 68.04 kg / sew 150 lbs; Height 5 ft. 10 in. (177.80 cm); Pain 0/10; 21:28 BP 125 / 84; Pulse 52; Resp 18; Temp 97.2(O); Pulse Ox 100% ; ms18 18:45 Body Mass Index 21.52 (68.04 kg, 177.80 cm) sew MDM: 19:30 NS 0.9% 1000 ml IV at bolus once ordered. cc10 19:30 ketorolac 30 mg IVP once ordered. cc10 19:30 IV Saline Lock ordered. cc10 19:30 Undress patient appropriately for examination ordered. cc10 19:31 Basic Metabolic Profile Ordered. EDMS 19:31 CBC with Diff Ordered. EDMS 19:31 Lipase Ordered. EDMS 19:31 Liver Profile Ordered. EDMS 19:31 Urinalysis Ordered. EDMS 19:31 Creatine Phosphokinase Ordered. EDMS 19:31 NOTHING BY MOUTH+DIET ordered. EDMS 19:35 MAGNESIUM LEVEL Ordered. EDMS 20:06 Promethazine 25 mg IVP once; dilute and administer 30-60 minutes ordered. cc10 20:14 Financial registration complete. zo 20:20 [facility] [place] Payment Agreement was scanned into [employer] and attached to record. zo 20:46 Basic Metabolic Profile Reviewed. cc10 20:46 CBC with Diff Reviewed. cc10 20:46 Liver Profile Reviewed. cc10 20:46 Urinalysis Reviewed. cc10 20:46 Lipase Reviewed. cc10 20:46 Creatine Phosphokinase Reviewed. cc10 20:46 MAGNESIUM LEVEL Reviewed. cc10 21:24 Misc. Nursing Order ordered. cc10 03/29 08:25 T-Sheet-- Draft Copy was scanned into [employer] and attached to record. [facility] Administered Medications: 03/28 20:02 Drug: NS 0.9% 1000 ml [sodium chloride 0.9 % intravenous solution] Route: IV; Rate: ld5 bolus; Site: right antecubital; 21:28 Follow up: IV Status: Completed infusion; IV Intake: 1000ml ms18 20:03 Drug: ketorolac 30 mg [ketorolac 30 mg/mL (1 mL) injection solution (1 mL)] Route: IVP; ld5 Site: right antecubital; 20:46 Follow up: Response: No significant change. ld5 20:06 CANCELLED (Patient Refused): Ondansetron 4 mg IVP once cc10 20:14 Drug: Promethazine 25 mg [promethazine 25 mg/mL injection solution (1 mL)] Route: IVP; ld5 Site: right antecubital; 20:45 Follow up: Response: No significant change. ld5 Signatures: Dispatcher [employer] EDMS Eileen Naylor Matthew RN RN ml6 Kalpana CarreonRN RN ld5 Denis Webb PA-C PA-C cc10 Frieda Cormier RN RN ms18 Lupe Giovana [facility] The chart was reviewed and I authenticate all verbal orders and agree with the evaluation and treatment provided.Corrections: (The following items were deleted from the chart) 19:35 19:32 MAGNESIUM LEVEL+LAB ordered. EDMS EDMS 20:06 19:30 Ondansetron 4 mg IVP once ordered. cc10 cc10 20: 20:06 Ondansetron 4 mg IVP once ordered. cc10 cc10 Attachments: 20:20 [facility] [place] Payment Agreement zo 03/29 08:25 T-Sheet-- Draft Copy [facility] Chart Complete MTDD
--- NOTE | 2016-04-01 10:02 | EDDOCDS ---
Nurse's Notes [facility] Name: Gonzalo Stevens Age: 35 yrs Sex: Male : 1980 Arrival Date: 03/28/2016 Time: 18:42 Bed I2 / M2 Private MD: No Pcp Diagnosis: Nausea and vomiting;Viral infection, unspecified Presentation: 03/28 18:47 Presenting complaint: Patient states: states that he was seen here one Thursday by ml6 Aneta for N/V told to return today for a recheck of symptoms and labs. Adult Sepsis Screening: The patient does not have new or worsening altered mentation. Patient's respiratory rate is less than 22. Systolic blood pressure is greater than 100. Patient has a qSOFA score of 0- Negative Sepsis Screen. Suicide/Homicide risk assessment- the patient denies having any suicidal and/or homicidal ideations and does not present with any other emotional, behavioral or mental health complaints. 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 Transition of care: patient was not received from another setting of care. 18:47 Acuity: IRA Level 3 ml6 18:47 Method Of Arrival: Walkin/Carried/Asstd ml6 Triage Assessment: 18:50 General: Appears in no apparent distress, Behavior is appropriate for age, cooperative. ml6 Pain: Denies pain. HIV screening NA for this visit Offered previously. Neurological: No deficits noted. Level of Consciousness is awake, alert, Oriented to person, place, time. Cardiovascular: No deficits noted. Capillary refill < 3 seconds is brisk in bilateral fingers toes. Respiratory: No deficits noted. Airway is patent Respiratory effort is even, unlabored, Respiratory pattern is regular, symmetrical, Breath sounds are clear bilaterally. GI: Abdomen is flat, non- distended Bowel sounds present X 4 quads. Abd is soft and non tender X 4 quads. Reports nausea, Denies diarrhea, vomiting, pain. Historical: - Allergies: no known allergies; - Home Meds: 1. promethazine 25 mg Oral tab 1 tab every 6 hours (Last dose: 03/28/2016 14:00) 2. Xanax 0.25 mg Oral tab 1 tab 3 times per day (Last dose: 03/28/2016 18:00) - PMHx: sickle cell trait; - PSHx: none; - Social history: Smoking status: Patient states was never smoker of tobacco. No barriers to communication noted, Speaks appropriately for age. - Family history: Not pertinent. - : The pt / caregiver states he / she is not on anticoagulants. Home medication list is obtained from the patient. - Exposure Risk Screening:: None identified. Screenin:28 Screening information is obtained from the patient. Fall risk: No risks identified. ms18 Assistance ADL's: requires no assistance with activities of daily living. Abuse/DV Screen: The patient / caregiver reports he/she is: not in a situation that causes fear, pain or injury. Nutritional screening: No deficits noted. Advance Directives: There is no living will. home support is adequate. Assessment: 19:45 General: Appears in no apparent distress, comfortable, Behavior is appropriate for age, ms18 cooperative, quiet. Pain: Location: abdomen. Neurological: Level of Consciousness is awake, alert, obeys commands, Oriented to person, place, time. Respiratory: No deficits noted. GI: Abdomen is flat, non- distended Reports nausea, intolerance of food, intolerance of fluids. Derm: Skin is pink, warm & dry. 20:15 General: Pt requesting Phenergan instead of Zofran. Provider made aware and medication ld5 changed. Pt medicated per orders. Lights dimmed for comfort. Will continue to monitor. 20:46 General: Pt reports no significant change in symptoms. Provider aware. Fluids remain ld5 infusing. Will continue to monitor. 21:28 General: Appears in no apparent distress, comfortable, Behavior is appropriate for age, ms18 cooperative. Neurological: Level of Consciousness is awake, alert, obeys commands, Oriented to person, place, time. Respiratory: No deficits noted. Derm: Skin is pink, warm & dry. 21:50 General: Stool collection kit explained to pt and SO. Discharge paperwork discussed and ld5 given. Neurological: Level of Consciousness is awake, obeys commands. Respiratory: Airway is patent Respiratory effort is even, unlabored. Vital Signs: 18:45 BP 114 / 79; Pulse 49; Resp 18; Temp 97.4(O); Pulse Ox 100% on R/A; Weight 68.04 kg; sew Height 5 ft. 10 in. (177.80 cm); Pain 0/10; 21:28 BP 125 / 84; Pulse 52; Resp 18; Temp 97.2(O); Pulse Ox 100% ; ms18 18:45 Body Mass Index 21.52 (68.04 kg, 177.80 cm) [facility] [place] Vitals: 18:45 Log In Time: March 28, 2016 at 18:43. sew ED Course: 18:44 Patient visited by Giovana Reese. sew 18:44 Patient moved to Waiting sew 18:45 No Pcp is Private Physician. sew 18:46 Patient visited by Giovana Reese. sew 18:46 Patient moved to Pre RCE sew 18:48 Triage Initiated ml6 19:18 Patient moved to Triage 1 cj 19:19 Patient visited by Colette Duron PCA. jb5 19:25 Denis Webb PA-C is PHCP. cc10 19:25 Hever Damon DO is Attending Physician. cc10 19:25 Patient visited by Denis Webb PA-C. cc10 19:25 Patient visited by Denis Webb PA-C. cc10 19:30 Patient moved to I2 / M2 [facility] 19:37 Urinalysis Sent. jb5 19:45 Inserted saline lock: 18 gauge in right antecubital area and blood collected. The ms18 patient tolerated the procedure well. 19:48 Patient visited by Frieda Cormier RN. ms18 19:48 MAGNESIUM LEVEL Sent. ms18 19:48 Creatine Phosphokinase Sent. ms18 19:48 Basic Metabolic Profile Sent. ms18 19:48 CBC with Diff Sent. ms18 19:48 Lipase Sent. ms18 19:48 Liver Profile Sent. ms18 20:16 Patient visited by Kalpana Carreon RN. ld5 20:20 Patient name changed from Gonzalo\S\\S\Hilda\S\ to Gonzalo\S\ \S\Hilda. EDMS 20:20 [facility] was scanned into [employer] and attached to record. zo 20:47 Patient visited by Kalpana Carreon,INGRID. ld5 20:47 Patient visited by Frieda Cormier,INGRID. ms18 21:21 [facility] is Referral Physician. cc10 21:28 The patient / caregiver is instructed regarding the plan of care and ED course. ms18 Accompanied by Significant Other, Patient has correct armband on for positive identification. Placed in gown. Bed in low position. Call light in reach. Property sent home with patient. :Personal belongings accompany Pt. 21:28 Discontinued IV lock intact, bleeding controlled, pressure dressing applied, No ms18 redness/swelling at site. No procedures done that require assistance. 21:52 Patient visited by Kalpana Carreon RN. ld5 03/29 08:25 T-Sheet-- Draft Copy was scanned into [employer] and attached to record. [facility] Administered Medications: 03/28 20:02 Drug: NS 0.9% 1000 ml [sodium chloride 0.9 % intravenous solution] Route: IV; Rate: ld5 bolus; Site: right antecubital; 21:28 Follow up: IV Status: Completed infusion; IV Intake: 1000ml ms18 20:03 Drug: ketorolac 30 mg [ketorolac 30 mg/mL (1 mL) injection solution (1 mL)] Route: IVP; ld5 Site: right antecubital; 20:46 Follow up: Response: No significant change. ld5 20:06 CANCELLED (Patient Refused): Ondansetron 4 mg IVP once cc10 20:14 Drug: Promethazine 25 mg [promethazine 25 mg/mL injection solution (1 mL)] Route: IVP; ld5 Site: right antecubital; 20:45 Follow up: Response: No significant change. ld5 Intake: 21:28 IV: 1000.00ml; Total: 1000.00ml. ms18 Order Results: Lab Order: Basic Metabolic Profile; SPEC'M 03/28/16 19:47 Test: GLUCOSE, FASTING; Value: 87; Range: 70-105; Units: MG/DL; Status: F Test: BLOOD UREA NITROGEN; Value: 16; Range: 7-18; Units: MG/DL; Status: F Test: CREATININE FOR GFR; Value: 1.06; Range: 0.70-1.30; Units: MG/DL; Status: F Test: GLOMERULAR FILTRATION RATE; Value: > 60.0; Range: >60; Status: F Test: SODIUM LEVEL; Value: 144; Range: 136-145; Units: MEQ/L; Status: F Test: POTASSIUM SERUM; Value: 3.4; Range: 3.5-5.1; Abnormal: Below low normal; Units: MEQ/L; Status: F Test: CHLORIDE LEVEL; Value: 108; Range: 98-107; Abnormal: Above high normal; Units: MEQ/L; Status: F Test: CARBON DIOXIDE LEVEL; Value: 27; Range: 21-32; Units: MEQ/L; Status: F Test: ANION GAP; Value: 9; Range: 8-16; Units: MEQ/L; Status: F Test: CALCIUM LEVEL; Value: 9.4; Range: 8.5-10.1; Units: MG/DL; Status: F Test Note: ; Units are mL/min/1.73 m2 Chronic Kidney Disease Staging per NKF: Stage I & II GFR >=60 Normal to Mildly Decreased Stage III GFR 30-59 Moderately Decreased Stage IV GFR 15-29 Severely Decreased Stage V GFR <15 Very Little GFR Left ESRD GFR <15 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 Lab Order: CBC with Diff; SPEC'M 03/28/16 19:47 Test: WHITE BLOOD COUNT; Value: 8.5; Range: 4.0-10.0; Units: K/mm3; Status: F Test: RED BLOOD COUNT; Value: 4.42; Range: 4.30-6.10; Units: M/mm3; Status: F Test: HEMOGLOBIN; Value: 12.5; Range: 14.0-18.0; Abnormal: Below low normal; Units: g/dl; Status: F Test: HEMATOCRIT; Value: 37.2; Range: 42.0-52.0; Abnormal: Below low normal; Units: %; Status: F Test: MEAN CORPUSCULAR VOLUME; Value: 84.0; Range: 80.0-96.0; Units: fl; Status: F Test: MEAN CORPUSCULAR HEMOGLOBIN; Value: 28.3; Range: 27.0-33.0; Units: pg; Status: F Test: MEAN CORPUSCULAR HGB CONC; Value: 33.7; Range: 32.0-36.5; Units: g/dl; Status: F Test: RED CELL DISTRIBUTION WIDTH; Value: 13.3; Range: 11.5-14.5; Units: %; Status: F Test: PLATELET COUNT, AUTOMATED; Value: 202; Range: 150-450; Units: k/mm3; Status: F Test: NEUTROPHILS %; Value: 58.2; Range: 36.0-66.0; Units: %; Status: F Test: LYMPH %; Value: 29.3; Range: 24.0-44.0; Units: %; Status: F Test: MONO %; Value: 6.1; Range: 0.0-5.0; Abnormal: Above high normal; Units: %; Status: F Test: EOS %; Value: 3.8; Range: 0.0-3.0; Abnormal: Above high normal; Units: %; Status: F Test: BASO %; Value: 0.4; Range: 0.0-1.0; Units: %; Status: F Test: LARGE UNSTAINED CELL %; Value: 2.2; Range: 0.0-4.0; Units: %; Status: F Test: NEUTROPHILS #; Value: 5.0; Range: 1.8-7.7; Units: K/mm3; Status: F Test: LYMPH #; Value: 2.5; Range: 1.5-4.5; Units: K/mm3; Status: F Test: MONO #; Value: 0.5; Range: 0.0-0.8; Units: K/mm3; Status: F Test: EOS #; Value: 0.3; Range: 0.0-0.50; Units: K/mm3; Status: F Test: BASO #; Value: 0.0; Range: 0.0-0.2; Units: K/mm3; Status: F Test: LARGE UNSTAINED CELL #; Value: 0.2; Range: 0.0-0.4; Units: K/mm3; Status: F Lab Order: Lipase; SPEC'M 03/28/16 19:47 Test: LIPASE; Value: 133; Range: 73-393; Units: U/L; Status: F Lab Order: Liver Profile; SPEC'M 03/28/16 19:47 Test: AST/SGOT; Value: 19; Range: 15-37; Units: U/L; Status: F Test: ALT/SGPT; Value: 28; Range: 12-78; Units: U/L; Status: F Test: ALKALINE PHOSPHATASE; Value: 56; Range: 45-117; Units: U/L; Status: F Test: BILIRUBIN,TOTAL; Value: 0.7; Range: 0.2-1.0; Units: MG/DL; Status: F Test: BILIRUBIN,DIRECT; Value: 0.2; Range: 0.0-0.2; Units: MG/DL; Status: F Test: TOTAL PROTEIN; Value: 8.3; Range: 6.4-8.2; Abnormal: Above high normal; Units: GM/DL; Status: F Test: ALBUMIN; Value: 4.4; Range: 3.2-5.2; Units: GM/DL; Status: F Test: ALBUMIN/GLOBULIN RATIO; Value: 1.13; Range: 1.00-1.93; Status: F Lab Order: Urinalysis; SPEC'M 03/28/16 19:38 Test: APPEARANCE, URINE; Value: HAZY; Range: CLEAR; Status: F Test: COLOR, URINE; Value: YELLOW; Range: YELLOW; Status: F Test: PH,URINE; Value: 6.0; Range: 5.0-9.0; Units: UNITS; Status: F Test: SPECIFIC GRAVITY URINE AUTO; Value: 1.017; Range: 1.002-1.035; Status: F Test: PROTEIN, URINE AUTO; Value: 1+; Range: NEGATIVE; Abnormal: Above high normal; Units: mg/dL; Status: F Test: GLUCOSE, URINE (UA) AUTO; Value: NEGATIVE; Range: NEGATIVE; Units: mg/dL; Status: F Test: KETONE, URINE AUTO; Value: 1+; Range: NEGATIVE; Abnormal: Above high normal; Units: mg/dL; Status: F Test: UROBILINOGEN, URINE AUTO; Value: 0.2; Range: 0.0-2.0; Units: mg/dL; Status: F Test: BILIRUBIN, URINE AUTO; Value: NEGATIVE; Range: NEGATIVE; Status: F Test: NITRITE, URINE AUTO; Value: NEGATIVE; Range: NEGATIVE; Status: F Test: LEUKOCYTE ESTERASE, URINE AUTO; Value: NEGATIVE; Range: NEGATIVE; Status: F Test: BLOOD, URINE BLOOD; Value: NEGATIVE; Range: NEGATIVE; Status: F Test: WBC, URINE AUTO; Value: 2; Range: 0-3; Units: /HPF; Status: F Test: RBC, URINE AUTO; Value: 3; Range: 0-3; Units: /HPF; Status: F Test: BACTERIA, URINE AUTO; Value: NEGATIVE; Range: NEGATIVE; Status: F Test: SQUAMOUS EPITHELIAL CELL UR AU; Value: 1; Range: 0-6; Units: /HPF; Status: F Test: MUCUS, URINE; Value: SMALL; Range: NEGATIVE; Status: F Test: HYALINE CAST, URINE AUTO; Value: 0; Range: 0-1; Units: /LPF; Status: F Lab Order: Creatine Phosphokinase; SPEC'M 03/28/16 19:47 Test: CPK CREATINE PHOSPHOKINASE; Value: 281; Range: 39-308; Units: U/L; Status: F Lab Order: MAGNESIUM LEVEL; SPEC'M 03/28/16 19:47 Test: MAGNESIUM LEVEL; Value: 2.1; Range: 1.8-2.4; Units: MG/DL; Status: F Outcome: 21:22 Discharge ordered by Provider. cc10 21:28 Discharge Assessment: Patient awake, alert and oriented x 3. No cognitive and/or ms18 functional deficits noted. Patient verbalized understanding of disposition instructions. patient administered narcotics - no. The following High Risk Discharge criteria are identified: None. Discharged to home ambulatory, with significant other. Condition: good Condition: stable. Discharge instructions given to patient, Instructed on discharge instructions, follow up and referral plans. medication usage, Demonstrated understanding of instructions, medications, Pt was receptive of discharge instructions/ teaching. Prescriptions given X 1, Work note provided to patient. No special radiology studies were completed. 22:01 Patient left the ED. ld5 Signatures: Dispatcher [employer] EDMS Colette Duron, QUALITY ASSURANCE MONITOR BODY QUALITY ASSURANCE MONITOR BODY jb5 Eileen Naylor Matthew, RN RN ml6 Kalpana Carreon RN RN ld5 Lilly Mendez,RN INGRID [facility] Giovana Reese Colin, PA-C PA-C cc10 Frieda Cormier RN RN ms18 Giovana Andrade Chart Complete MTDD
--- NOTE | 2016-04-01 10:02 | EDDOCDS ---
Physician Documentation [facility] Name: Gonzalo Stevens Age: 35 yrs Sex: Male : 1980 Arrival Date: 03/28/2016 Time: 18:42 Bed I2 / M2 Private MD: No Pcp Disposition: 03/28/16 21:22 Discharged to Home/Self Care. Impression: Nausea and vomiting, Viral infection, unspecified. - Condition is Stable. - Discharge Instructions: Nausea and Vomiting, Viral Infections. - Prescriptions for Reglan 10 mg Oral Tablet - take 1 tablet by ORAL route every 6 hours take 30 minutes before meals and at bedtime; 20 tablet. - Family Work Release, Work Release Form - 2 day, Local Pharmacy Hours, Medication Reconciliation form. - Follow up: Emergency Department; When: As needed. Follow up: [facility]; When: Call to arrange an appointment; Reason: Wound/Symptom Recheck, Recheck today's complaints, Worsening of conditions, Continuance of care, To establish care. - Problem is an ongoing problem. - Symptoms have improved. - Notes: Please submit your stool sample with the lab slip provided BRANDY. Historical: - Allergies: no known allergies; - Home Meds: 1. promethazine 25 mg Oral tab 1 tab every 6 hours (Last dose: 03/28/2016 14:00) 2. Xanax 0.25 mg Oral tab 1 tab 3 times per day (Last dose: 03/28/2016 18:00) - PMHx: sickle cell trait; - PSHx: none; - Social history: Smoking status: Patient states was never smoker of tobacco. No barriers to communication noted, Speaks appropriately for age. - Family history: Not pertinent. - : The pt / caregiver states he / she is not on anticoagulants. Home medication list is obtained from the patient. - Exposure Risk Screening:: None identified. Vital Signs: 03/28 18:45 BP 114 / 79; Pulse 49; Resp 18; Temp 97.4(O); Pulse Ox 100% on R/A; Weight 68.04 kg / sew 150 lbs; Height 5 ft. 10 in. (177.80 cm); Pain 0/10; 21:28 BP 125 / 84; Pulse 52; Resp 18; Temp 97.2(O); Pulse Ox 100% ; ms18 18:45 Body Mass Index 21.52 (68.04 kg, 177.80 cm) sew MDM: 19:30 NS 0.9% 1000 ml IV at bolus once ordered. cc10 19:30 ketorolac 30 mg IVP once ordered. cc10 19:30 IV Saline Lock ordered. cc10 19:30 Undress patient appropriately for examination ordered. cc10 19:31 Basic Metabolic Profile Ordered. EDMS 19:31 CBC with Diff Ordered. EDMS 19:31 Lipase Ordered. EDMS 19:31 Liver Profile Ordered. EDMS 19:31 Urinalysis Ordered. EDMS 19:31 Creatine Phosphokinase Ordered. EDMS 19:31 NOTHING BY MOUTH+DIET ordered. EDMS 19:35 MAGNESIUM LEVEL Ordered. EDMS 20:06 Promethazine 25 mg IVP once; dilute and administer 30-60 minutes ordered. cc10 20:14 Financial registration complete. zo 20:20 [facility] was scanned into [employer] and attached to record. zo 20:46 Basic Metabolic Profile Reviewed. cc10 20:46 CBC with Diff Reviewed. cc10 20:46 Liver Profile Reviewed. cc10 20:46 Urinalysis Reviewed. cc10 20:46 Lipase Reviewed. cc10 20:46 Creatine Phosphokinase Reviewed. cc10 20:46 MAGNESIUM LEVEL Reviewed. cc10 21:24 Misc. Nursing Order ordered. cc10 03/29 08:25 T-Sheet-- Draft Copy was scanned into [employer] and attached to record. [facility] Administered Medications: 03/28 20:02 Drug: NS 0.9% 1000 ml [sodium chloride 0.9 % intravenous solution] Route: IV; Rate: ld5 bolus; Site: right antecubital; 21:28 Follow up: IV Status: Completed infusion; IV Intake: 1000ml ms18 20:03 Drug: ketorolac 30 mg [ketorolac 30 mg/mL (1 mL) injection solution (1 mL)] Route: IVP; ld5 Site: right antecubital; 20:46 Follow up: Response: No significant change. ld5 20:06 CANCELLED (Patient Refused): Ondansetron 4 mg IVP once cc10 20:14 Drug: Promethazine 25 mg [promethazine 25 mg/mL injection solution (1 mL)] Route: IVP; ld5 Site: right antecubital; 20:45 Follow up: Response: No significant change. ld5 Signatures: Dispatcher [employer] EDMS Eileen Naylor Matthew RN RN ml6 Kalpana CarreonRN RN ld5 Denis Webb PA-C PA-C cc10 Frieda Cormier RN RN ms18 Lupe Giovana [facility] The chart was reviewed and I authenticate all verbal orders and agree with the evaluation and treatment provided.Corrections: (The following items were deleted from the chart) 19:35 19:32 MAGNESIUM LEVEL+LAB ordered. EDMS EDMS 20:06 19:30 Ondansetron 4 mg IVP once ordered. cc10 cc10 20: 20:06 Ondansetron 4 mg IVP once ordered. cc10 cc10 Attachments: 20:20 [facility] zo 03/29 08:25 T-Sheet-- Draft Copy [facility] Chart Complete MTDD
== END 2016-03-28 22:01 | disposition home or self-care (01) ==
LOC: M ED 18:42
DX: B34.9 Viral infection, unspecified (principal); R11.2 Nausea with vomiting, unspecified; D57.3 Sickle-cell trait; Z79.899 Other long term (current) drug therapy
CPT/HCPCS: 36415; 80048; 80076; 81001; 82550; 83690; 83735; 85025; 96361; 96374; 96375; 99284; J1885; J2405

== ENCOUNTER → 2020-06-10 | Outpatient (CLI) | payer BC | LOC: M LABSMTC 11:36 | PROVIDERS: ATTEND Anesthesiology | DX: Z01.812 Encounter for preprocedural laboratory examination (principal) ==

== ENCOUNTER 2020-06-15 12:29 | Day surgery (SDC) | payer BC ==
[~2020-06-15] VITALS: Ht 177.8 cm; Wt 71.7 kg
[~2020-06-15 12:29] MED LIST changes: +BUSP5TA; +LIDOCAINE 2% 100MG/5ML SDV (FOR ANES.) As Ordered ONE; +NS 1,000 ML IV ONE; +ZOLO100T; +fentaNYL 100 MCG/2 ML INJECTION (J3010) As Ordered ONE; +propofoL 200 MG/20 ML VIAL As Ordered ONE
[2020-06-15] MEDS ORDERED: ePHEDrine SULFATE 25 MG/5 ML(5MG/ML) SYRINGE As Ordered ONE (14:31)
[2020-06-15] MEDS ORDERED: propofoL 200 MG/20 ML VIAL As Ordered ONE (14:49)
--- NOTE | 2020-06-15 15:13 | ROOR ---
Patient Name: Gonzalo Stevens Procedure Date: 06/15/2020 2:19 PM Date of : 1980 Age: 39 Room: [facility] Gender: Male Note Status: Finalized Procedure: Upper GI endoscopy Indications: Iron deficiency anemia, Weight loss Providers: Richie Uribe MD Referring MD: FREDY PERDOMO MD Requesting Provider: Medicines: Monitored Anesthesia Care Complications: No immediate complications. Procedure: Pre-Anesthesia Assessment: - Prior to the procedure, a History and Physical was performed, and patient medications and allergies were reviewed. The patient is competent. The risks and benefits of the procedure and the sedation options and risks were discussed with the patient. All questions were answered and informed consent was obtained. Patient identification and proposed procedure were verified by the physician, the nurse and the anesthesiologist in the procedure room. Mental Status Examination: alert and oriented. Airway Examination: normal oropharyngeal airway and neck mobility. Respiratory Examination: clear to auscultation. CV Examination: normal. Prophylactic Antibiotics: The patient does not require prophylactic antibiotics. Prior Anticoagulants: The patient has taken no previous anticoagulant or antiplatelet agents. ASA Grade Assessment: II - A patient with mild systemic disease. After reviewing the risks and benefits, the patient was deemed in satisfactory condition to undergo the procedure. The anesthesia plan was to use monitored anesthesia care (MAC). Immediately prior to administration of medications, the patient was re-assessed for adequacy to receive sedatives. The heart rate, respiratory rate, oxygen saturations, blood pressure, adequacy of pulmonary ventilation, and response to care were monitored throughout the procedure. The physical status of the patient was re-assessed after the procedure. The Endoscope was introduced through the mouth, and advanced to the second part of duodenum. The upper GI endoscopy was accomplished without difficulty. The patient tolerated the procedure well. Findings: The examined esophagus was normal. Scattered mild inflammation characterized by erythema and granularity was found in the gastric body and in the gastric antrum. Biopsies were taken with a cold forceps for Helicobacter pylori testing. Verification of patient identification for the specimen was done by the physician and nurse using the patient's name, date and medical record number. Estimated blood loss was minimal. The duodenal bulb and second portion of the duodenum were normal. Biopsies for histology were taken with a cold forceps for evaluation of celiac disease. Impression: - Normal esophagus. - Gastritis. Biopsied. - Normal duodenal bulb and second portion of the duodenum. Biopsied. Recommendation: - Patient has a contact number available for emergencies. The signs and symptoms of potential delayed complications were discussed with the patient. Return to normal activities tomorrow. Written discharge instructions were provided to the patient. - High fiber diet and High protein diet (if possible take OTC protein supplement drinks once ot twice a day). - Continue present medications. - Await pathology results. - Telephone GI clinic for pathology results in 1 week. - Return to primary care physician. Procedure Code(s): --- Professional --- 83594, Esophagogastroduodenoscopy, flexible, transoral; with biopsy, single or multiple Diagnosis Code(s): --- Professional --- K29.70, Gastritis, unspecified, without bleeding D50.9, Iron deficiency anemia, unspecified R63.4, Abnormal weight loss CPT copyright 2019 [employer]. All rights reserved. The codes documented in this report are preliminary and upon learning and development associate review may be revised to meet current compliance requirements. Richie Uribe MD Richie Uribe MD 06/15/2020 3:12:51 PM Electronically signed by Richie Uribe MD Number of Addenda: 0 Note Initiated On: 06/15/2020 2:19 PM Estimated Blood Loss: Estimated blood loss was minimal.
--- NOTE | 2020-06-15 15:18 | ROOR ---
Patient Name: Gonzalo Stevens Procedure Date: 06/15/2020 2:20 PM Date of : 1980 Age: 39 Room: [facility] Gender: Male Note Status: Finalized Procedure: Colonoscopy Indications: Hematochezia, Unexplained iron deficiency anemia, Weight loss Providers: Richie Uribe MD Referring MD: FREDY PERDOMO MD Requesting Provider: Medicines: Monitored Anesthesia Care Complications: No immediate complications. Procedure: Pre-Anesthesia Assessment: - Prior to the procedure, a History and Physical was performed, and patient medications and allergies were reviewed. The patient is competent. The risks and benefits of the procedure and the sedation options and risks were discussed with the patient. All questions were answered and informed consent was obtained. Patient identification and proposed procedure were verified by the physician, the nurse and the anesthesiologist in the procedure room. Mental Status Examination: alert and oriented. Airway Examination: normal oropharyngeal airway and neck mobility. Respiratory Examination: clear to auscultation. CV Examination: normal. Prophylactic Antibiotics: The patient does not require prophylactic antibiotics. Prior Anticoagulants: The patient has taken no previous anticoagulant or antiplatelet agents. ASA Grade Assessment: II - A patient with mild systemic disease. After reviewing the risks and benefits, the patient was deemed in satisfactory condition to undergo the procedure. The anesthesia plan was to use monitored anesthesia care (MAC). Immediately prior to administration of medications, the patient was re-assessed for adequacy to receive sedatives. The heart rate, respiratory rate, oxygen saturations, blood pressure, adequacy of pulmonary ventilation, and response to care were monitored throughout the procedure. The physical status of the patient was re-assessed after the procedure. The Colonoscope was introduced through the anus and advanced to 15 cm into the ileum. The colonoscopy was performed without difficulty. The patient tolerated the procedure well. The quality of the bowel preparation was good. The terminal ileum, ileocecal valve, appendiceal orifice, and rectum were photographed. Scope insertion time was 3 minutes. Scope withdrawal time was 10 minutes. The total duration of the procedure was 14 minutes. Findings: The perianal and digital rectal examinations were normal. Patchy inflammation, mild in severity and characterized by congestion (edema), erythema and granularity was found in the terminal ileum and in the ileocecal valve. Biopsies were taken with a cold forceps for histology. Verification of patient identification for the specimen was done by the physician and nurse using the patient's name, date and medical record number. Estimated blood loss was minimal. Normal mucosa was found in the entire colon. Non-bleeding external and internal hemorrhoids were found during retroflexion. The hemorrhoids were medium-sized. Impression: - Ileitis Biopsied. - Normal mucosa in the entire examined colon. - Non-bleeding external and internal hemorrhoids. Recommendation: - Patient has a contact number available for emergencies. The signs and symptoms of potential delayed complications were discussed with the patient. Return to normal activities tomorrow. Written discharge instructions were provided to the patient. - High fiber diet and High protein diet (if possible take OTC protein supplement drinks once ot twice a day). - Continue present medications. - Await pathology results. - Repeat colonoscopy at age 50 for screening purposes. - Telephone GI clinic for pathology results in 2 weeks. - If further symptoms, consider performing a CT scan of the abdomen at appointment to be scheduled. - Return to primary care physician. Procedure Code(s): --- Professional --- 65742, Colonoscopy, flexible; with biopsy, single or multiple Diagnosis Code(s): --- Professional --- K52.9, Noninfective gastroenteritis and colitis, unspecified K64.8, Other hemorrhoids K92.1, Melena (includes Hematochezia) D50.9, Iron deficiency anemia, unspecified R63.4, Abnormal weight loss CPT copyright 2019 [employer]. All rights reserved. The codes documented in this report are preliminary and upon manager hospice review may be revised to meet current compliance requirements. Richie Uribe MD Richie Uribe MD 06/15/2020 3:17:56 PM Electronically signed by Richie Uribe MD Number of Addenda: 0 Note Initiated On: 06/15/2020 2:20 PM Estimated Blood Loss: Estimated blood loss was minimal.
[2020-06-15] MEDS ORDERED: SIMETHICONE 40MG/0.6ML DROPS 30ML As Ordered ONE (15:26)
[2020-06-15 15:34] VITALS: BP 118/73
== END 2020-06-15 15:36 | disposition home or self-care (01) ==
LOC: M OPP 12:29
PROVIDERS: ATTEND Internal Medicine Gastroenterology
DX: K52.9 Noninfective gastroenteritis and colitis, unspecified (principal); K64.8 Other hemorrhoids; K92.1 Melena; D50.9 Iron deficiency anemia, unspecified; R63.4 Abnormal weight loss; K29.70 Gastritis, unspecified, without bleeding; F17.210 Nicotine dependence, cigarettes, uncomplicated; Z79.899 Other long term (current) drug therapy
CPT/HCPCS: 43239; 45380; 88305; J3010

== ENCOUNTER → 2020-06-19 | Outpatient (CLI) | payer BC ==
[~2020-06-19] MED LIST changes: -LIDOCAINE 2% 100MG/5ML SDV (FOR ANES.) As Ordered ONE; -NS 1,000 ML IV ONE; -fentaNYL 100 MCG/2 ML INJECTION (J3010) As Ordered ONE; -propofoL 200 MG/20 ML VIAL As Ordered ONE
[2020-06-19 13:22] LABS: BASO # 0.1 10^3/uL (0.0-0.2); BASO % 0.7 % (0.0-1.0); EOS # 0.3 10^3/uL (0.0-0.5); EOS % 2.9 % (0.0-3.0); HEMATOCRIT 35.3 % (42.0-52.0); HEMOGLOBIN 11.9 g/dl (13.5-17.5); LYMPH # 3.4 10^3/uL (1.5-5.0); LYMPH % 30.8 % (24.0-44.0); MEAN CORPUSCULAR HEMOGLOBIN 27.9 pg (27.0-33.0); MEAN CORPUSCULAR HGB CONC 33.7 g/dl (32.0-36.5); MEAN CORPUSCULAR VOLUME 82.7 fl (80.0-96.0); MONO # 0.9 10^3/uL (0.0-0.8); MONO % 8.3 % (2.0-8.0); NEUTROPHILS # 6.2 10^3/uL (1.5-8.5); NEUTROPHILS % 56.8 % (36.0-66.0); PLATELET COUNT, AUTOMATED 237 10^3/uL (150-450); RED BLOOD COUNT 4.27 10^6/uL (4.30-6.10)
[2020-06-19 14:11] LABS: ALBUMIN 4.6 GM/DL (3.2-5.2); ALT/SGPT 20 U/L (12-78); BILIRUBIN,DIRECT < 0.1 MG/DL (0.0-0.2); BILIRUBIN,TOTAL 0.3 MG/DL (0.2-1.0); BLOOD UREA NITROGEN 13 MG/DL (7-18); CALCIUM LEVEL 9.8 MG/DL (8.5-10.1); CARBON DIOXIDE LEVEL 29 MEQ/L (21-32); CHLORIDE LEVEL 106 MEQ/L (98-107); CREATININE FOR GFR 0.98 MG/DL (0.70-1.30); GLOMERULAR FILTRATION RATE > 60.0 (>60); GLUCOSE, FASTING 93 MG/DL (70-100); IRON (FE) 59 UG/DL (65-175); POTASSIUM SERUM 4.5 MEQ/L (3.5-5.1); SODIUM LEVEL 139 MEQ/L (136-145); TOTAL IRON BINDING CAPACITY 310 UG/DL (250-450); TOTAL PROTEIN 8.1 GM/DL (6.4-8.2)
== END ==
LOC: M LAB 12:43
PROVIDERS: ATTEND Internal Medicine Gastroenterology
DX: D50.9 Iron deficiency anemia, unspecified (principal)

== ENCOUNTER → 2020-07-11 | Outpatient (CLI) | payer BC ==
[~2020-07-11] MED LIST changes: +VoLumen 0.1% SUSPENSION 450ML BOTTLE As Ordered ONE
== END ==
LOC: M RAD 09:39
PROVIDERS: ATTEND Internal Medicine Gastroenterology
DX: D64.9 Anemia, unspecified (principal)

== ENCOUNTER → 2020-09-04 | Outpatient (CLI) | payer BC ==
[~2020-09-04] MED LIST changes: +GLUCAGON INJ 1MG VIAL As Ordered ONE; +ISOVUE-370 76% 100ML VIAL As Ordered ONE
--- NOTE | 2020-09-05 07:25 | REP ---
INDICATION: ANEMIA ? IBS. COMPARISON: 03/26/2016 TECHNIQUE: Axial contrast-enhanced images from the lung bases to the pubic symphysis using 100 cc Isovue 370 intravenous contrast material along with coronal and sagittal reformations. Images obtained in arterial phase and portal venous phase of enhancement. This CT examination was performed using the following dose reduction techniques: Automated exposure control, adjustment of mA and/or kv according to the patient's size, and the use of iterative reconstruction technique. FINDINGS: Liver, spleen, pancreas, gallbladder, bilateral adrenal glands and kidneys are normal. The enteric system including stomach, small, and large bowel appears normal. No evidence for obstruction or acute inflammatory process. Normal terminal ileum and appendix are identified in the right lower quadrant. Scattered sigmoid diverticula noted without acute diverticulitis. Pelvis demonstrates normal bladder and age-appropriate prostate/seminal vesicles. No ascites. No free air. No intraperitoneal or retroperitoneal adenopathy. Abdominal aorta and vasculature appear normal. Musculoskeletal structures are intact and without acute osseous abnormality. There is sclerosis and bridging at the right sacroiliac joint consistent with chronic sacroiliitis as well as chronic bilateral L5 spondylolysis without spondylolisthesis. IMPRESSION: No acute abdominopelvic pathology appreciated. Scattered sigmoid diverticula without acute diverticulitis. Nonacute skeletal changes as noted above <Electronically signed by Nixon Lamar > 09/05/20 [id number]
== END ==
LOC: M RAD 15:41
PROVIDERS: ATTEND Internal Medicine Gastroenterology
DX: D64.9 Anemia, unspecified (principal)

== ENCOUNTER 2020-09-11 20:05 | Emergency (ER) | payer BC ==
[~2020-09-11] VITALS: Ht 177.8 cm; Wt 71.5 kg
[~2020-09-11 20:05] MED LIST changes: -GLUCAGON INJ 1MG VIAL As Ordered ONE; -ISOVUE-370 76% 100ML VIAL As Ordered ONE; -VoLumen 0.1% SUSPENSION 450ML BOTTLE As Ordered ONE
[2020-09-11 22:07] LABS: HEMATOCRIT 30.7 % (42.0-52.0); HEMOGLOBIN 10.3 g/dl (13.5-17.5); MEAN CORPUSCULAR HEMOGLOBIN 27.8 pg (27.0-33.0); MEAN CORPUSCULAR HGB CONC 33.6 g/dl (32.0-36.5); MEAN CORPUSCULAR VOLUME 82.7 fl (80.0-96.0); PLATELET COUNT, AUTOMATED 196 10^3/uL (150-450); RED BLOOD COUNT 3.71 10^6/uL (4.30-6.10); WHITE BLOOD COUNT 10.1 10^3/uL (4.0-10.0)
[2020-09-11 22:20] LABS: INR 0.93; PARTIAL THROMBOPLASTIN TIME 28.7 SECONDS (24.2-38.5); PROTHROMBIN TIME 12.7 SECONDS (12.5-14.3)
[2020-09-11 22:31] LABS: ANISOCYTOSIS 1+; ATYPICAL LYMPH 5 % (0-5); EOSINOPHILS 2 % (0-3); HYPOCHROMASIA 1+; LYMPHOCYTES 35 % (16-44); MONOCYTES 8 % (0-5); NEUTROPHILS 50 % (28-66); PLATELET ESTIMATE NORMAL (NORMAL)
[2020-09-11 22:33] LABS: ALBUMIN 3.9 GM/DL (3.2-5.2); ALT/SGPT 20 U/L (12-78); BILIRUBIN,DIRECT < 0.1 MG/DL (0.0-0.2); BILIRUBIN,TOTAL 0.3 MG/DL (0.2-1.0); BLOOD UREA NITROGEN 16 MG/DL (7-18); CARBON DIOXIDE LEVEL 26 MEQ/L (21-32); CHLORIDE LEVEL 106 MEQ/L (98-107); CREATININE FOR GFR 0.95 MG/DL (0.70-1.30); GLOMERULAR FILTRATION RATE > 60.0 (>60); GLUCOSE, FASTING 84 MG/DL (70-100); LIPASE 136 U/L (73-393); POTASSIUM SERUM 3.9 MEQ/L (3.5-5.1); SODIUM LEVEL 139 MEQ/L (136-145); TOTAL PROTEIN 7.1 GM/DL (6.4-8.2)
[2020-09-11 23:00] VITALS: BP 123/63
[2020-09-12 00:15] LABS: RSV AMPLIFICATION NEGATIVE (NEGATIVE)
== END 2020-09-12 00:02 | disposition left against medical advice (07) ==
LOC: M ED 20:05
DX: K92.2 Gastrointestinal hemorrhage, unspecified (principal); Z87.19 Personal history of other diseases of the digestive system

== ENCOUNTER → 2020-12-24 | Outpatient (CLI) | payer BC ==
[~2020-12-24] MED LIST changes: -ZOLO100T; +ZOLO100T PO
== END ==
LOC: M LABSMTC 11:27
PROVIDERS: ATTEND Anesthesiology
DX: Z01.818 Encounter for other preprocedural examination (principal); Z11.52 Encounter for screening for COVID-19

== ENCOUNTER 2020-12-28 10:05 | Day surgery (SDC) | payer BC ==
[~2020-12-28] VITALS: Ht 177.8 cm; Wt 67.1 kg
[~2020-12-28 10:05] MED LIST changes: +LIDOCAINE 2% 100MG/5ML SDV (FOR ANES.) As Ordered ONE; +NS 1,000 ML IV ONE; +propofoL 200 MG/20 ML VIAL As Ordered ONE
[2020-12-28] MEDS ORDERED: SIMETHICONE 40MG/0.6ML DROPS 30ML As Ordered ONE (10:53)
[2020-12-28] MEDS ORDERED: ePHEDrine SULFATE 25 MG/5 ML(5MG/ML) SYRINGE As Ordered ONE (10:54)
[2020-12-28] MEDS ORDERED: propofoL 200 MG/20 ML VIAL As Ordered ONE ×2 (11:12→11:29)
[2020-12-28] MEDS ORDERED: fentaNYL 100 MCG/2 ML INJECTION (J3010) As Ordered ONE (11:26)
--- NOTE | 2020-12-28 12:03 | ROOR ---
Patient Name: Gonzalo Stevens Procedure Date: 12/28/2020 10:37 AM Date of : 1980 Age: 40 Room: [facility] Gender: Male Note Status: Finalized Procedure: Colonoscopy Indications: Abdominal pain in the left lower quadrant, Hematochezia Providers: Richie Uribe MD Referring MD: FREDY PERDOMO MD Requesting Provider: Medicines: Monitored Anesthesia Care Complications: No immediate complications. Procedure: Pre-Anesthesia Assessment: - Prior to the procedure, a History and Physical was performed, and patient medications and allergies were reviewed. The patient is competent. The risks and benefits of the procedure and the sedation options and risks were discussed with the patient. All questions were answered and informed consent was obtained. Patient identification and proposed procedure were verified by the physician, the nurse and the anesthesiologist in the procedure room. Mental Status Examination: alert and oriented. Airway Examination: normal oropharyngeal airway and neck mobility. Respiratory Examination: clear to auscultation. CV Examination: normal. Prophylactic Antibiotics: The patient does not require prophylactic antibiotics. Prior Anticoagulants: The patient has taken no previous anticoagulant or antiplatelet agents. ASA Grade Assessment: II - A patient with mild systemic disease. After reviewing the risks and benefits, the patient was deemed in satisfactory condition to undergo the procedure. The anesthesia plan was to use monitored anesthesia care (MAC). Immediately prior to administration of medications, the patient was re-assessed for adequacy to receive sedatives. The heart rate, respiratory rate, oxygen saturations, blood pressure, adequacy of pulmonary ventilation, and response to care were monitored throughout the procedure. The physical status of the patient was re-assessed after the procedure. The Colonoscope was introduced through the anus and advanced to the terminal ileum, with identification of the appendiceal orifice and IC valve. The colonoscopy was performed without difficulty. The patient tolerated the procedure well. The quality of the bowel preparation was good. The terminal ileum, ileocecal valve, appendiceal orifice, and rectum were photographed. Scope insertion time was 2 minutes. Scope withdrawal time was 9 minutes. The total duration of the procedure was 25 minutes. Findings: The perianal and digital rectal examinations were normal. There is no endoscopic evidence of bleeding, diverticula, inflammation, stricture or ulcerations at 40 cm from the IC valve. The terminal ileum contained a few petechiae. For location marking, two hemostatic clips were successfully placed. There was no bleeding at the end of the procedure. A large amount of semi-solid stool was found from ascending colon to cecum, interfering with visualization. Lavage of the area was performed using a large amount of sterile water, resulting in clearance with fair visualization. Non-bleeding external and internal hemorrhoids were found during retroflexion. The hemorrhoids were medium-sized. Impression: - Stool from ascending colon to cecum. - Non-bleeding external and internal hemorrhoids. - No specimens collected. Recommendation: - Patient has a contact number available for emergencies. The signs and symptoms of potential delayed complications were discussed with the patient. Return to normal activities tomorrow. Written discharge instructions were provided to the patient. - High fiber diet. - Continue present medications. - Await pathology results. - Repeat colonoscopy at age 50 for screening purposes. - Return to GI clinic in [facility] (address: [address] [place] [address], [address] [place] [address], [place], [place],[address]) in 4 -- 6 weeks. Please call GI clinic @ [phone] for apppointment date and time. - Return to primary care physician. Procedure Code(s): --- Professional --- 89356, Colonoscopy, flexible; diagnostic, including collection of specimen(s) by brushing or washing, when performed (separate procedure) Diagnosis Code(s): --- Professional --- K64.8, Other hemorrhoids R10.32, Left lower quadrant pain K92.1, Melena (includes Hematochezia) CPT copyright 2019 [employer]. All rights reserved. The codes documented in this report are preliminary and upon well logging captain review may be revised to meet current compliance requirements. Richie Uribe MD Rihcie Uribe MD 12/28/2020 12:03:28 PM Electronically signed by Richie Uribe MD Number of Addenda: 0 Note Initiated On: 12/28/2020 10:37 AM Estimated Blood Loss: Estimated blood loss was minimal.
[2020-12-28 12:15] VITALS: BP 112/62
== END 2020-12-28 12:15 | disposition home or self-care (01) ==
LOC: M OPP 10:05
PROVIDERS: ATTEND Internal Medicine Gastroenterology
DX: K92.1 Melena (principal); R10.32 Left lower quadrant pain; K64.8 Other hemorrhoids; Z79.899 Other long term (current) drug therapy; F17.220 Nicotine dependence, chewing tobacco, uncomplicated
CPT/HCPCS: 45378; J3010